=== PATIENT | female | born 1985 | race African-American/Black ===

== ENCOUNTER 2016-10-28 18:08 | Emergency (ER) | payer MEDICAID ==
--- NOTE | 2016-10-28 18:41 | ER Document Report ---
ED Medical Screen (RME) - General Stated Complaint: STOMACH CRAMPING Time seen by provider: 18:41 Mode of Arrival: Wheelchair Information source: Patient TRAVEL OUTSIDE OF THE [place] IN LAST 30 DAYS: No - HPI Patient complains to provider of: ABD PAIN Onset: This morning Onset/Duration: Sudden, Intermittent Quality of pain: Cramping, Sharp Severity: Severe Pain Level: 5 Associated Symptoms: Abdominal pain - UPPER ABD, Nausea, Vomiting. denies: Fever, Vaginal bleeding Exacerbated by: Denies Relieved by: Denies Similar symptoms previously: No Recently seen / treated by doctor: No - Related Data Smoking: Non-smoker Frequency of alcohol use: None Drug Abuse: None Allergies/Adverse Reactions: naproxen [Naproxen] Allergy (Intermediate, Verified 10/28/16 18:42) itching, hives Past Medical History Pulmonary Medical History: Reports: Hx Bronchitis Endocrine Medical History: Denies: Hx Diabetes Mellitus Type 1, Hx Diabetes Mellitus Type 2 Skin Medical History: Denies Hx Cellulitis, Denies Hx MRSA Traumatic Medical History: Denies: Hx Fractures Past Surgical History: Reports: Hx Cholecystectomy - Immunizations Hx Diphtheria, Pertussis, Tetanus Vaccination: No - unknown Physical Exam - Vital signs Vitals: Temp Pulse Resp BP Pulse Ox 98.3 F 86 18 133/87 H 100 10/28/16 18:20 10/28/16 18:20 10/28/16 18:20 10/28/16 18:20 10/28/16 18:20 Course - Vital Signs Vital signs: Temp Pulse Resp BP Pulse Ox 98.3 F 86 18 133/87 H 100 10/28/16 18:20 10/28/16 18:20 10/28/16 18:20 10/28/16 18:20 10/28/16 18:20
[2016-10-28] MEDS ORDERED: PROMETHAZINE HCL 25 MG TABLET PO ONE (18:47)
[2016-10-28 19:10] LABS: ABSOLUTE LYMPHOCYTES (AUTO) 2.4 10^3/uL (0.5-4.7); ABSOLUTE MONOCYTES (AUTO) 0.9 10^3/uL (0.1-1.4); ABSOLUTE NEUT (AUTO) 10.6 10^3/uL (1.7-8.2); BASOPHILS % (AUTO) 0.2 % (0-2); EOSINOPHILS % (AUTO) 0.2 % (0-6); HEMATOCRIT 41.1 % (36.0-47.0); HEMOGLOBIN 13.7 g/dL (12.0-15.5); LYMPHOCYTES % (AUTO) 17.3 % (13-45); MEAN CORPUSCULAR HEMOGLOBIN 29.4 pg (27.0-33.4); MEAN CORPUSCULAR HGB CONC 33.2 g/dL (32.0-36.0); MEAN CORPUSCULAR VOLUME 88 fl (80-97); MONOCYTES % (AUTO) 6.3 % (3-13); RED BLOOD COUNT 4.65 10^6/uL (3.72-5.28); RED CELL DISTRIBUTION WIDTH 14.2 % (11.5-14.0)
[2016-10-28 19:13] LABS: APPEARANCE,URINE CLOUDY; BILIRUBIN,URINE NEGATIVE (NEGATIVE); GLUCOSE, URINE NEGATIVE (NEGATIVE); KETONES,URINE NEGATIVE (NEGATIVE); LEUKOCYTE ESTERASE,URINE LARGE (NEGATIVE); NITRITE,URINE NEGATIVE (NEGATIVE); PROTEIN,URINE NEGATIVE (NEGATIVE); URINE SPECIFIC GRAVITY 1.011
[2016-10-28 19:22] LABS: ALANINE AMINOTRANSFERASE 19 U/L (9-52); ALBUMIN 4.8 g/dL (3.5-5.0); ALKALINE PHOSPHATASE 65 U/L (38-126); ANION GAP 14 (5-19); ASPARTATE AMINO TRANSFERASE 18 U/L (14-36); BILIRUBIN,TOTAL 0.8 mg/dL (0.2-1.3); BLOOD UREA NITROGEN 7 mg/dL (7-20); CALCIUM 9.8 mg/dL (8.4-10.2); CARBON DIOXIDE 25 mmol/L (22-30); CHLORIDE 101 mmol/L (98-107); CREATININE RESULT 0.63 mg/dL (0.52-1.25); GLUCOSE 94 mg/dL (75-110); SODIUM 139.6 mmol/L (137-145); TOTAL PROTEIN 7.9 g/dL (6.3-8.2)
[2016-10-28] MEDS ORDERED: CEFTRIAXONE INJ 1000 MG VIAL IM ONE (20:38)
--- NOTE | 2016-10-28 21:32 | ER Document Report ---
ED General - General Chief Complaint: Abdominal Pain Stated Complaint: STOMACH CRAMPING Mode of Arrival: Wheelchair Information source: Patient Notes: This 30-year-old female who had a confirmed with the health department about 5 weeks ago has not followed up with an HELMINTHOLOGIST yet however she did have a blood test it was a confirmed with them she presents to the ER today stating she's got upper abdominal discomfort she does not have any bleeding spotting or cramping states that the pain is more like acidic burning type discomfort TRAVEL OUTSIDE OF THE [place] IN LAST 30 DAYS: No - Related Data Allergies/Adverse Reactions: naproxen [Naproxen] Allergy (Intermediate, Verified 10/28/16 18:42) itching, hives Past Medical History - General Information source: Patient - Social History Smoking Status: Never Smoker Chew tobacco use (# tins/day): No Frequency of alcohol use: None Drug Abuse: None Family History: CVA Patient has suicidal ideation: No Patient has homicidal ideation: No Pulmonary Medical History: Reports: Hx Bronchitis Endocrine Medical History: Denies: Hx Diabetes Mellitus Type 1, Hx Diabetes Mellitus Type 2 Renal/ Medical History: Denies: Hx Peritoneal Dialysis Skin Medical History: Denies Hx Cellulitis, Denies Hx MRSA Traumatic Medical History: Denies: Hx Fractures Past Surgical History: Reports: Hx Cholecystectomy - Immunizations Hx Diphtheria, Pertussis, Tetanus Vaccination: No - unknown Review of Systems - Review of Systems Constitutional: No symptoms reported EENT: No symptoms reported Cardiovascular: No symptoms reported Respiratory: No symptoms reported Gastrointestinal: No symptoms reported Genitourinary: No symptoms reported Female Genitourinary: No symptoms reported Musculoskeletal: No symptoms reported Skin: No symptoms reported Hematologic/Lymphatic: No symptoms reported Neurological/Psychological: No symptoms reported Physical Exam - Vital signs Vitals: Temp Pulse Resp BP Pulse Ox 98.3 F 86 18 133/87 H 100 10/28/16 18:20 10/28/16 18:20 10/28/16 18:20 10/28/16 18:20 10/28/16 18:20 Interpretation: Normal - General General appearance: Appears well, Alert - HEENT Head: Normocephalic, Atraumatic Eyes: Normal Pupils: PERRL - Respiratory Respiratory status: No respiratory distress Chest status: Nontender Breath sounds: Normal Chest palpation: Normal - Cardiovascular Rhythm: Regular Heart sounds: Normal auscultation Murmur: No - Abdominal Inspection: Normal Distension: No distension Bowel sounds: Normal Tenderness: Nontender Organomegaly: No organomegaly - Back Back: Normal, Nontender - Extremities General upper extremity: Normal inspection, Nontender, Normal color, Normal ROM , Normal temperature General lower extremity: Normal inspection, Nontender, Normal color, Normal ROM , Normal temperature, Normal weight bearing. No: Erin's sign - Neurological Neuro grossly intact: Yes Cognition: Normal Orientation: AAOx4 Sal Coma Scale Eye Opening: Spontaneous [place] Coma Scale Verbal: Oriented Sal Coma Scale Motor: Obeys Commands [place] Coma Scale Total: 15 Speech: Normal Motor strength normal: LUE, RUE, LLE, RLE Sensory: Normal - Psychological Associated symptoms: Normal affect, Normal mood - Skin Skin Temperature: Warm Skin Moisture: Dry Skin Color: Normal Course - Vital Signs Vital signs: Temp Pulse Resp BP Pulse Ox 98.3 F 86 18 133/87 H 100 10/28/16 18:20 10/28/16 18:20 10/28/16 18:20 10/28/16 18:20 10/28/16 18:20 - Laboratory Result Diagrams: 10/28/16 18:50 10/28/16 18:50 Laboratory results interpreted by me: 10/28/16 10/28/16 10/28/16 18:50 18:50 18:50 WBC 14.0 H RDW 14.2 H Absolute Neutrophils 10.6 H Beta HCG, Quant 901456.00 H Urine Urobilinogen 2.0 H Ur Leukocyte Esterase LARGE H - Diagnostic Test Radiology reviewed: Reports reviewed Discharge - Discharge Clinical Impression: UTI (urinary tract infection) Qualifiers: Urinary tract infection type: site unspecified Hematuria presence: without hematuria Qualified Code(s): N39.0 - Urinary tract infection, site not specified GERD (gastroesophageal reflux disease) Qualifiers: Esophagitis presence: without esophagitis Qualified Code(s): K21.9 - Gastro- esophageal reflux disease without esophagitis Disposition: HOME, SELF-CARE Instructions: Cephalexin ([facility]) Additional Instructions: Urinary Tract Infection Your evaluation indicates that you have a urinary tract infection. This is due to germs growing in the bladder. This is a common problem. This infection usually responds quickly to antibiotics. Your antibiotic should be taken exactly as prescribed. Drink plenty of fluids -- three to four quarts a day. Occasionally, a bladder anesthetic will be prescribed to help stop the feeling of urgency until the antibiotic has a chance to clear the infection. This may cause your urine to be dark orange. Certain urine infections require a culture. If the doctor obtained a culture, the results will be back in two days. You should call to see if a change in treatment is needed. A repeat urinalysis after you finish treatment is often recommended. The physician will let you know if further testing is required. Call the doctor if you develop fever, chills, flank pain, inability to urinate, or blood in the urine. Follow-up with private doctor in 1 to 2 days for final radiology readings please return to the emergency room for any change worsening condition. Follow up with private M.D. for all other routine health care needs. Follow-up with [facility] [facility] TECHNICIAN as appointed on Thursday
[2016-10-28] MEDS ORDERED: LIDOCAINE 1% INJ-PF (10 MG/ML) 30 ML SDV ONE (21:48)
[2016-10-28 22:06] VITALS: BP 117/75
== END 2016-10-28 22:04 | disposition home or self-care (01) ==
LOC: ER 18:08
DX: O23.40 Unspecified infection of urinary tract in pregnancy, unspecified trimester (principal); O99.619 Diseases of the digestive system complicating pregnancy, unspecified trimester; K21.9 Gastro-esophageal reflux disease without esophagitis; O26.899 Other specified pregnancy related conditions, unspecified trimester; R10.10 Upper abdominal pain, unspecified; Z3A.00 Weeks of gestation of pregnancy not specified
CPT/HCPCS: 99283; 96372; 86900; 86901; 36415; 84702; 85025; 80053; 81001; 76801; 93976; J3490; J0696

== ENCOUNTER 2016-11-20 18:15 | Emergency (ER) | payer MEDICAID ==
--- NOTE | 2016-11-20 19:15 | ER Document Report ---
ED Medical Screen (RME) - General Stated Complaint: ABDOMINAL PAIN, VAGINAL BLEEDING Mode of Arrival: Ambulatory Information source: Patient Notes: 31-year-old female who reports is approximately 12 weeks , , presents to the emergency department complaining of mild upper abdominal cramping and vaginal bleeding that began this afternoon. Reports noted blood when wiping after urinating. I have greeted and performed a rapid initial assessment of this patient. A comprehensive ED assessment and evaluation of the patient, analysis of test results and completion of the medical decision making process will be conducted by additional ED providers. TRAVEL OUTSIDE OF THE [place] IN LAST 30 DAYS: No - Related Data Allergies/Adverse Reactions: naproxen [Naproxen] Allergy (Intermediate, Verified 11/20/16 19:08) itching, hives Past Medical History Pulmonary Medical History: Reports: Hx Bronchitis Endocrine Medical History: Denies: Hx Diabetes Mellitus Type 1, Hx Diabetes Mellitus Type 2 Renal/ Medical History: Denies: Hx Peritoneal Dialysis Skin Medical History: Denies Hx Cellulitis, Denies Hx MRSA Traumatic Medical History: Denies: Hx Fractures Past Surgical History: Reports: Hx Cholecystectomy - Immunizations Hx Diphtheria, Pertussis, Tetanus Vaccination: No - unknown Physical Exam - General General appearance: Appears well, Alert In distress: None - Respiratory Respiratory status: No respiratory distress - Cardiovascular Rhythm: Regular Pulses: Normal: Radial Normal capillary refill: Yes
[2016-11-20 19:38] LABS: ABSOLUTE EOSINOPHILS # (AUTO) 0.1 10^3/uL (0.0-0.6); ABSOLUTE LYMPHOCYTES (AUTO) 3.1 10^3/uL (0.5-4.7); ABSOLUTE NEUT (AUTO) 10.3 10^3/uL (1.7-8.2); BASOPHILS % (AUTO) 0.3 % (0-2); EOSINOPHILS % (AUTO) 0.6 % (0-6); HEMATOCRIT 39.8 % (36.0-47.0); HEMOGLOBIN 13.4 g/dL (12.0-15.5); HGB HCT DIFFERENCE 0.4; LYMPHOCYTES % (AUTO) 21.2 % (13-45); MEAN CORPUSCULAR HEMOGLOBIN 29.8 pg (27.0-33.4); MEAN CORPUSCULAR HGB CONC 33.6 g/dL (32.0-36.0); MEAN CORPUSCULAR VOLUME 89 fl (80-97); MONOCYTES % (AUTO) 6.9 % (3-13); RED BLOOD COUNT 4.49 10^6/uL (3.72-5.28); RED CELL DISTRIBUTION WIDTH 14.1 % (11.5-14.0); WHITE BLOOD COUNT 14.5 10^3/uL (4.0-10.5)
[2016-11-20 19:52] LABS: APPEARANCE,URINE CLEAR; BILIRUBIN,URINE NEGATIVE (NEGATIVE); GLUCOSE, URINE NEGATIVE (NEGATIVE); KETONES,URINE 20 mg/dL (NEGATIVE); LEUKOCYTE ESTERASE,URINE NEGATIVE (NEGATIVE); NITRITE,URINE NEGATIVE (NEGATIVE); PROTEIN,URINE 30 mg/dL (NEGATIVE); URINE SPECIFIC GRAVITY 1.018
[2016-11-20 19:55] LABS: ALANINE AMINOTRANSFERASE 29 U/L (9-52); ALBUMIN 4.1 g/dL (3.5-5.0); ALKALINE PHOSPHATASE 66 U/L (38-126); ANION GAP 13 (5-19); ASPARTATE AMINO TRANSFERASE 20 U/L (14-36); BILIRUBIN,TOTAL 0.5 mg/dL (0.2-1.3); BLOOD UREA NITROGEN 6 mg/dL (7-20); CARBON DIOXIDE 23 mmol/L (22-30); CHLORIDE 101 mmol/L (98-107); CREATININE RESULT 0.63 mg/dL (0.52-1.25); GLUCOSE 78 mg/dL (75-110); SODIUM 136.5 mmol/L (137-145); TOTAL PROTEIN 7.6 g/dL (6.3-8.2)
--- NOTE | 2016-11-20 22:02 | ER Document Report ---
ED General - General Chief Complaint: Vaginal Bleeding Stated Complaint: ABDOMINAL PAIN, VAGINAL BLEEDING Time seen by provider: 21:50 Mode of Arrival: Ambulatory Information source: Patient Notes: 31-year-old female with abrupt onset of vaginal bleeding with passage of clots and lower abdominal cramping meeting about 3:30 this afternoon. Patient thinks she is about 12 weeks . She denies fever, chills, nausea, vomiting, cough, shortness of breath, chest pain, or back pain. She reports recent UTI but says those symptoms resolved. She denies hematemesis, mattress, melena Physical Exam: General: Alert, appears well. HEENT: Normocephalic. Atraumatic. PERRLA. Extraocular movements intact. Oropharynx clear. Neck: Supple. Non-tender. Respiratory: No respiratory distress. Clear and equal breath sounds bilaterally. Cardiovascular: Regular rate and rhythm. Abdominal: Normal Inspection. Soft, non-tender. No distension. Normal Bowel Sounds. normal female external genitalia. No blood in vaginal vault. No discharge present. No cervical motion tenderness. Os closed. No adnexal masses or tenderness. Uterus barely palpable at the pelvic brim Back: Non-tender. No deformity or step off. Extremities without gross deformity all with 2+ pulses Homans sign bilaterally Neurological: Speech clear mentation normal Psychological: Normal affect. Normal Mood. Skin: Warm. Dry. Normal color. TRAVEL OUTSIDE OF THE [place] IN LAST 30 DAYS: No - Related Data Allergies/Adverse Reactions: naproxen [Naproxen] Allergy (Intermediate, Verified 11/20/16 19:08) itching, hives Past Medical History - General Information source: Patient - Social History Smoking Status: Former Smoker Chew tobacco use (# tins/day): No Frequency of alcohol use: None Drug Abuse: None Family History: CVA, DM Patient has suicidal ideation: No Patient has homicidal ideation: No Pulmonary Medical History: Reports: Hx Bronchitis Endocrine Medical History: Denies: Hx Diabetes Mellitus Type 1, Hx Diabetes Mellitus Type 2 Renal/ Medical History: Reports: Other - . Denies: Hx Peritoneal Dialysis Skin Medical History: Denies Hx Cellulitis, Denies Hx MRSA Traumatic Medical History: Denies: Hx Fractures Past Surgical History: Reports: Hx Cholecystectomy - Immunizations Hx Diphtheria, Pertussis, Tetanus Vaccination: No - unknown Review of Systems - Review of Systems Constitutional: denies: Chills, Fever EENT: denies: Ear pain, Throat pain Cardiovascular: denies: Chest pain, Dyspnea Respiratory: denies: Cough, Short of breath Gastrointestinal: See HPI Genitourinary: See HPI Female Genitourinary: Musculoskeletal: denies: Back pain Hematologic/Lymphatic: denies: Swollen glands Neurological/Psychological: denies: Weakness, Numbness Course - Re-evaluation Re-evalutation: 11/20/16 22:46 Patient is asymptomatic now. I discussed with her possibility that this may represent reddened a be but at the moment things look healthy she will follow with her SANFOR[facility]ER for recheck - Laboratory Result Diagrams: 11/20/16 19:15 11/20/16 19:15 Laboratory results interpreted by me: 11/20/16 11/20/16 11/20/16 19:15 19:15 19:15 WBC 14.5 H RDW 14.1 H Absolute Neutrophils 10.3 H Sodium 136.5 L BUN 6 L Beta HCG, Quant 180301.00 H Urine Protein 30 H Urine Ketones 20 H Urine Urobilinogen 2.0 H Urine Ascorbic Acid 40 H - Diagnostic Test Radiology reviewed: Reports reviewed Discharge - Discharge Clinical Impression: First-trimester bleeding Condition: Stable Disposition: HOME, SELF-CARE Additional Instructions: Threatened Miscarriage You have been evaluated for a possible miscarriage. At this time, there is no indication that a miscarriage will occur. Most women with your symptoms will go on to have a perfectly normal baby. However, careful observation will be necessary. A miscarriage occurs when the fetus is abnormal. There is no medicine or treatment for it. You should rest in bed until the symptoms have resolved. Do not douche or have sex for at least a week, or until OK'd by the doctor. Call the doctor or return for re-examination if there is an increase in bleeding or cramping, or passage of tissue. Referrals: KIERSTEN MONROY MD [Primary Care Provider] - Follow up in 1 week
[2016-11-20 23:16] VITALS: BP 127/74
== END 2016-11-20 23:00 | disposition home or self-care (01) ==
LOC: ER 18:15
DX: O20.9 Hemorrhage in early pregnancy, unspecified (principal); O26.891 Other specified pregnancy related conditions, first trimester; R10.30 Lower abdominal pain, unspecified; Z3A.00 Weeks of gestation of pregnancy not specified; Z87.891 Personal history of nicotine dependence; Z88.8 Allergy status to other drugs, medicaments and biological substances; Z90.49 Acquired absence of other specified parts of digestive tract
CPT/HCPCS: 36415; 76801; 80053; 81001; 83690; 84702; 85025; 86900; 86901; 93976; 99284

== ENCOUNTER → 2017-02-24 | Outpatient (CLI) | payer MEDICAID ==
[2017-02-24 13:04] LABS: ABSOLUTE MONOCYTES (AUTO) 0.9 10^3/uL (0.1-1.4); ABSOLUTE NEUT (AUTO) 9.8 10^3/uL (1.7-8.2); BASOPHILS % (AUTO) 0.2 % (0-2); EOSINOPHILS % (AUTO) 0.4 % (0-6); HEMATOCRIT 36.2 % (36.0-47.0); HEMOGLOBIN 11.8 g/dL (12.0-15.5); HGB HCT DIFFERENCE -0.8; LYMPHOCYTES % (AUTO) 15.9 % (13-45); MEAN CORPUSCULAR HGB CONC 32.7 g/dL (32.0-36.0); MEAN CORPUSCULAR VOLUME 89 fl (80-97); MONOCYTES % (AUTO) 7.2 % (3-13); RED BLOOD COUNT 4.09 10^6/uL (3.72-5.28); RED CELL DISTRIBUTION WIDTH 14.2 % (11.5-14.0); SEGMENTED NEUTROPHILS % (AUTO) 76.3 % (42-78); WHITE BLOOD COUNT 12.8 10^3/uL (4.0-10.5)
[2017-02-24 13:49] LABS: APPEARANCE,URINE SLIGHTLY-CLOUDY; BILIRUBIN,URINE NEGATIVE (NEGATIVE); GLUCOSE, URINE 50 mg/dL (NEGATIVE); KETONES,URINE NEGATIVE (NEGATIVE); LEUKOCYTE ESTERASE,URINE TRACE (NEGATIVE); NITRITE,URINE NEGATIVE (NEGATIVE); PROTEIN,URINE NEGATIVE (NEGATIVE); URINE SPECIFIC GRAVITY 1.014; UROBILINOGEN,URINE NEGATIVE mg/dL (<2.0)
[2017-02-24 14:09] LABS: URINE BARBITURATES SCREEN NEGATIVE; URINE METHADONE SCREEN NEGATIVE; URINE OPIATES LOW NEGATIVE; URINE PHENCYCLIDINE SCREEN NEGATIVE
== END ==
LOC: LC 11:49
PROVIDERS: ATTEND Obstetrics & Gynecology
PROC: 4A1HXCZ Monitoring of Products of Conception, Cardiac Rate, External Approach (ICD-10-PCS; principal; 2017-02-24)
DX: O26.892 Other specified pregnancy related conditions, second trimester (principal); R10.2 Pelvic and perineal pain; Z3A.25 25 weeks gestation of pregnancy
CPT/HCPCS: 36415; 80307; 81001; 85025

== ENCOUNTER 2017-03-05 16:35 | Outpatient (CLI) | payer MEDICAID ==
[~2017-03-05 16:35] MED LIST: RINGERS SOLUTION,LACTATED 1,000 ML IV PRN
[2017-03-05 17:18] LABS: APPEARANCE,URINE CLEAR; BILIRUBIN,URINE NEGATIVE (NEGATIVE); GLUCOSE, URINE NEGATIVE (NEGATIVE); KETONES,URINE NEGATIVE (NEGATIVE); LEUKOCYTE ESTERASE,URINE TRACE (NEGATIVE); NITRITE,URINE NEGATIVE (NEGATIVE); PROTEIN,URINE 30 mg/dL (NEGATIVE); URINE SPECIFIC GRAVITY 1.021; UROBILINOGEN,URINE NEGATIVE mg/dL (<2.0)
[2017-03-05 17:19] LABS: BACTERIA,URINE TRACE /HPF; RBC,URINE 0-1 /HPF; WBC,URINE 0-1 /HPF
[2017-03-05 17:38] LABS: URINE BARBITURATES SCREEN NEGATIVE; URINE METHADONE SCREEN NEGATIVE; URINE OPIATES LOW NEGATIVE; URINE PHENCYCLIDINE SCREEN NEGATIVE
== END 2017-03-05 17:52 | disposition home or self-care (01) ==
LOC: LC 16:35
PROVIDERS: ATTEND Obstetrics & Gynecology
PROC: 4A1HXCZ Monitoring of Products of Conception, Cardiac Rate, External Approach (ICD-10-PCS; principal; 2017-03-05)
DX: O99.282 Endocrine, nutritional and metabolic diseases complicating pregnancy, second trimester (principal); E86.0 Dehydration; R11.2 Nausea with vomiting, unspecified; Z3A.27 27 weeks gestation of pregnancy
CPT/HCPCS: 80307; 81001

== ENCOUNTER 2017-04-14 11:44 | Outpatient (CLI) | payer MEDICAID ==
[2017-04-14 12:38] LABS: APPEARANCE,URINE CLOUDY; BILIRUBIN,URINE NEGATIVE (NEGATIVE); GLUCOSE, URINE NEGATIVE (NEGATIVE); KETONES,URINE NEGATIVE (NEGATIVE); LEUKOCYTE ESTERASE,URINE SMALL (NEGATIVE); NITRITE,URINE NEGATIVE (NEGATIVE); PROTEIN,URINE NEGATIVE (NEGATIVE); URINE SPECIFIC GRAVITY 1.005; UROBILINOGEN,URINE NEGATIVE mg/dL (<2.0)
[2017-04-14 12:52] LABS: URINE BARBITURATES SCREEN NEGATIVE; URINE METHADONE SCREEN NEGATIVE; URINE OPIATES LOW NEGATIVE; URINE PHENCYCLIDINE SCREEN NEGATIVE
--- NOTE | 2017-04-14 13:55 | RADIOLOGY REPORT (SQ) ---
EXAM DESCRIPTION: U/S OB LIMITED COMPLETED DATE/TIME: 04/14/2017 1:38 pm REASON FOR STUDY: cervical length- eval for PTL COMPARISON: No previous this TECHNIQUE: Limited transabdominal and endovaginal grayscale ultrasound for evaluation of specific re quested obstetrical parameters. LIMITATIONS: None. FINDINGS: CERVICAL LENGTH: 4.3 cm Closed. ROSY: Largest pocket 4 cm. FHR: 139 beats per minute. PRESENTATION: Cephalic. OTHER: No other significant findings. IMPRESSION: LIMITED OBSTETRICAL ULTRASOUND WITH MEASURED PARAMETERS DELINEATED ABOVE. Trimester of : Third trimester - 28 weeks to delivery. TECHNICAL DOCUMENTATION: JOB ID: [id number] [email or web address]- All Rights Reserved
--- NOTE | 2017-04-14 15:47 | Non Stress Test Report ---
Non Stress Test Datetime Report Generated by CPN: 04/14/2017 15:47 DEMOGRAPHIC EGA NST: 32.0 INDICATION Indication for Study: Ordered by Provider Indication for Study (NST) Other: Labor check, NST labor. VITAL SIGNS Temperature - NST: 98.3 Pulse - NST: 89 RESP - NST: 16 NBPSYS NST: 111 NBPDIA NST: 58 URINE RESULTS Urine Protein, NST: Negative Urine Ketones - NST: Negative Urine Glucose - NST: Negative Urine Blood - NST: Negative MONITORING Monitor Explained: Monitor Explained; Test Explained; Patient Verbalized Understanding Time on Monitor: 04/14/2017 12:07 Time off Monitor: 04/14/2017 14:26 NST Duration: 139 NST INTERVENTIONS NST Interventions: PO Hydration; Reposition Patient Physician Notified NST: A. Emmel, CNM BABY A: [id number] BABY A Movement : Present Contraction Frequency : None FHR Baseline : 130 Accelerations : 10X10 Decelerations : None Variability : Moderate 6-25bpm NST Review: Meets Criteria for Reactive NST NST Review and Verified By : JASON EASLEY, RN NST Results: Reactive NST COMMENTS NST Comments: Appropriate for gestational age, kickcounts carenotes given, questions answered. NST REPORT Report Trigger: Send Report
== END 2017-04-14 14:35 | disposition home or self-care (01) ==
LOC: LC 11:44
PROVIDERS: ATTEND Obstetrics & Gynecology
PROC: 4A1HXCZ Monitoring of Products of Conception, Cardiac Rate, External Approach (ICD-10-PCS; principal; 2017-04-14)
DX: O47.03 False labor before 37 completed weeks of gestation, third trimester (principal); Z3A.32 32 weeks gestation of pregnancy
CPT/HCPCS: 59025; 76815; 80307; 81001

== ENCOUNTER 2017-06-06 02:16 | Inpatient (IN) | payer MEDICAID ==
[2017-06-06] MEDS ORDERED: LIDOCAINE 1% INJ-PF (10 MG/ML) 30 ML SDV ONE (02:21)
[2017-06-06] MEDS ORDERED: MISOPROSTOL 0.2 MG TABLET ONE (02:21)
[2017-06-06] MEDS ORDERED: OXYTOCIN/NORMAL SALINE 20 UNIT/1,000 ML RTUINJ ONE (02:22)
[2017-06-06] MEDS ORDERED: RINGERS SOLUTION,LACTATED 1,000 ML IV PRN (02:27)
[2017-06-06] MEDS ORDERED: PENICILLIN G POTASSIUM 5,000,000 UNIT in DEXTROSE 5%-WATER 100 ML IV ONE (02:35)
[2017-06-06] MEDS ORDERED: PENICILLIN G-K 5 MILLION UNIT VIAL ONE (02:35)
[2017-06-06 02:39] LABS: ABSOLUTE BASOPHILS # (AUTO) 0.1 10^3/uL (0.0-0.2); ABSOLUTE LYMPHOCYTES (AUTO) 2.6 10^3/uL (0.5-4.7); ABSOLUTE MONOCYTES (AUTO) 0.9 10^3/uL (0.1-1.4); ABSOLUTE NEUT (AUTO) 8.5 10^3/uL (1.7-8.2); BASOPHILS % (AUTO) 0.5 % (0-2); EOSINOPHILS % (AUTO) 0.3 % (0-6); HEMATOCRIT 34.9 % (36.0-47.0); HEMOGLOBIN 11.1 g/dL (12.0-15.5); HGB HCT DIFFERENCE -1.6; LYMPHOCYTES % (AUTO) 21.2 % (13-45); MEAN CORPUSCULAR HEMOGLOBIN 26.3 pg (27.0-33.4); MEAN CORPUSCULAR HGB CONC 31.9 g/dL (32.0-36.0); MEAN CORPUSCULAR VOLUME 83 fl (80-97); MONOCYTES % (AUTO) 7.8 % (3-13); RED BLOOD COUNT 4.22 10^6/uL (3.72-5.28); RED CELL DISTRIBUTION WIDTH 15.7 % (11.5-14.0); SEGMENTED NEUTROPHILS % (AUTO) 70.2 % (42-78); WHITE BLOOD COUNT 12.1 10^3/uL (4.0-10.5)
[2017-06-06 02:46] LABS: APPEARANCE,URINE SLIGHTLY-CLOUDY; BILIRUBIN,URINE NEGATIVE (NEGATIVE); GLUCOSE, URINE NEGATIVE (NEGATIVE); KETONES,URINE NEGATIVE (NEGATIVE); LEUKOCYTE ESTERASE,URINE SMALL (NEGATIVE); NITRITE,URINE NEGATIVE (NEGATIVE); PROTEIN,URINE NEGATIVE (NEGATIVE); URINE SPECIFIC GRAVITY 1.005; UROBILINOGEN,URINE NEGATIVE mg/dL (<2.0)
[2017-06-06 03:05] LABS: URINE BARBITURATES SCREEN NEGATIVE; URINE METHADONE SCREEN NEGATIVE; URINE OPIATES LOW NEGATIVE; URINE PHENCYCLIDINE SCREEN NEGATIVE
[2017-06-06] MEDS ORDERED: PSEUDOEPHEDRINE HCL 30 MG TABLET PO PRN (03:38)
[2017-06-06] MEDS ORDERED: MEASLES,MUMPS&RUBELLA VACC/PF 0.5 ML VIAL SUBCUT PRN (03:38)
[2017-06-06] MEDS ORDERED: PROMETHAZINE HCL 25 MG SUPP.RECT PR PRN (03:38)
[2017-06-06] MEDS ORDERED: ZOLPIDEM TARTRATE 5 MG TABLET PO PRN (03:38)
[2017-06-06] MEDS ORDERED: BENZOCAINE/MENTHOL AEROSOL SPRAY 56 ML TOP PRN (03:38)
[2017-06-06] MEDS ORDERED: ACETAMINOPHEN 650 MG SUPP.RECT PR PRN (03:38)
[2017-06-06] MEDS ORDERED: DIPH/PERTUSS(ACELL)/TETANUS VAC/PF 0.5 ML SYR (>=10YO) IM PRN (03:38)
[2017-06-06] MEDS ORDERED: ACETAMINOPHEN WITH CODEINE #3 TABLET PO PRN (03:38)
[2017-06-06] MEDS ORDERED: MAGNESIUM HYDROXIDE SUSP 30 ML UDCUP PO PRN (03:38)
[2017-06-06] MEDS ORDERED: NA PHOS,M-B/NA PHOS,DI-BA (ADULT) 133 ML ENEMA PR PRN (03:38)
[2017-06-06] MEDS ORDERED: OXYTOCIN/NORMAL SALINE 20 UNIT/1,000 ML RTUINJ IV PRN (03:38)
[2017-06-06] MEDS ORDERED: GLYCERIN/WITCH HAZEL LEAF 1 EACH MED..PAD TP PRN (03:38)
[2017-06-06] MEDS ORDERED: DIPHENHYDRAMINE HCL 25 MG CAPSULE PO PRN (03:38)
[2017-06-06] MEDS ORDERED: PROMETHAZINE HCL 25 MG TABLET PO PRN (03:38)
[2017-06-06] MEDS ORDERED: PROMETHAZINE HCL INJ 25 MG/1 ML VIAL IV PRN (03:38)
[2017-06-06] MEDS ORDERED: DIBUCAINE 1% OINTMENT 28 GM TP PRN (03:38)
[2017-06-06] MEDS ORDERED: ACETAMINOPHEN WITH CODEINE #3 TABLET ONE (04:10)
[2017-06-06] MEDS: ACETAMINOPHEN WITH CODEINE #3 TABLET PO PRN ×4 (04:23→23:59)
--- NOTE | 2017-06-06 05:43 | Admission Physical ---
Datetime Report Generated by CPN: 06/06/2017 05:43 CURRENT ADMISSION Chief Complaint: Uterine Contractions Indication for Induction: Not Applicable Admit Plan: Admit to Unit ALLERGIES Medication Allergies: Yes Medication Allergies: naproxen/MO/itching, hives (06/06/2017) Medication Allergies: naproxen/MO/itching, hives (04/14/2017) Medication Allergies: naproxen/MO/itching, hives (02/24/2017) Medication Allergies: naproxen/MO/itching, hives (11/20/2016) Latex: No Latex Allergies OBSTETRICAL HISTORY EDC: 06/09/2017 00:00 : 4 Para: 3 Term: 3 : 0 SAB: 0 IAB: 0 Ectopic: 0 Livin Cesareans: 0 VBACs: 0 Multiple Births: 0 Gestational Diabetes: Yes Rh Sensitization: No Incompetent Cervix: No ZOHRA: No Infertility: No ART Treatment: No Uterine Anomaly: No IUGR: No Hx Previous C/S: No Macrosomia: No Hx Loss/Stillborn: No PIH: No Hx : No Placenta Previa/Abruption: No Depression/PP Depression: Yes PTL/PROM: No Post Hemorrhage: Unknown Current Procedures: Ultrasound; NST Obstetrical History Comments: GDM G1 only PP Depression with G2 and G3 G4: current SEE RECORDS Alcohol: No Marijuana : No Cocaine: No Other Illicit Drugs: No Cigarettes: Former Smoker. [id number] MEDICAL HISTORY Diabetes: No Blood Transfusion: No Pulmonary Disease (Asthma, TB): No Breast Disease: No Hypertension: No Water Inspector Surgery: No Heart Disease: No Hosp/Surgery: Yes Autoimmune Disorder: No Anesthetic Complications: No Kidney Disease: No Abnormal Pap Smear: No Neuro/Epilepsy: No Psychiatric Disorders: No Other Medical Diseases: No Hepatitis/Liver Disease: No Significant Family History: No Varicosities/Phlebitis: No Trauma/Violence : No Thyroid Dysfunction: No Medical History Comments: childbirth, gallbladder INFECTIOUS HISTORY Gonorrhea: No Genital Herpes: No Chlamydia: No Tuberculosis: No Syphilis: No Hepatitis: No HIV/AIDS Exposure: No Rash or Viral Illness: No HPV: No PHYSICAL EXAM General: Normal HEENT: Normal Neurologic: Normal Thyroid: Normal Heart: Normal Lungs: Normal Breast: Normal Back: Normal Abdomen: Normal Genitourinary Exam: Normal Extremities: Normal DTRs: Normal Pelvic Type: Adequate Vital Signs: Reviewed VAGINAL EXAM Dilatation: 8 Effacement: 90 Station: -1 MEMBRANES Pooling: Positive Membranes: Ruptured FETUS A EGA: 39.4 Monitoring: External US FHR- Baseline: 140 Variability: Moderate 6-25bpm Accelerations: 15X15 Decelerations: None FHR Category: Category I Presentation: Vertex Admit Comment: anticpate delivery PLANS FOR LABOR AND DELIVERY Feeding Preference: Breast Benefit of Breast Feed Discussed: Yes Circumcision: N/A INFORMED CONSENT Signature: with User ID: [email or web address]
[2017-06-06] MEDS ORDERED: IBUPROFEN 800 MG TABLET PO SCH (06:00)
[2017-06-06] MEDS ORDERED: PENICILLIN G POTASSIUM 2,500,000 UNIT in DEXTROSE 5%-WATER 50 ML IV SCH (06:35)
[2017-06-06] MEDS: PRENATAL VITAMIN W-O CA NO5/FE FUMARATE/FA CAPSULE PO SCH (09:36)
[2017-06-06] MEDS: SENNOSIDES/DOCUSATE 8.6-50 MG 1 EACH TABLET PO SCH (09:36)
[2017-06-06] MEDS: FERROUS SULFATE 325 MG TABLET PO SCH ×2 (09:37→18:19)
[2017-06-06] MEDS: FAMOTIDINE 20 MG TABLET PO SCH ×2 (09:37→23:29)
[2017-06-06] MEDS: DOCUSATE SODIUM 100 MG CAPSULE PO SCH ×2 (09:37→18:19)
--- NOTE | 2017-06-06 11:57 | PDOC PROGRESS REPORT ---
Subjective-OB Subjective: Post Delivery Day: 31 year old. Denies any needs at this time. Some nausea sec Codeine medication. Has taken antinausea med. Physical Exam (OB) Vital Signs: Temp Pulse Resp BP Pulse Ox 98.6 F 73 16 140/83 H 100 06/06/17 07:35 06/06/17 07:35 06/06/17 07:35 06/06/17 07:35 06/06/17 07:35 Intake & Output 06/05/17 06/06/17 06/07/17 06:59 06:59 06:59 Weight 99 kg - Dressing Removed: No - Lochia Lochia Amount: Scant < 10 ml Lochia Color: Rubra/Red - Abdomen Description: Tender, Soft Hernia Present: No Bowel Sounds: Normoactive Flatus Presence: Absent Stool: No Fundal Description: Firm, Midline Fundal Height: u/u - u/2 Objective-Diagnostic Laboratory: 06/06/17 02:12 06/06/17 06/06/17 06/06/17 02:12 02:12 02:25 WBC 12.1 H RBC 4.22 Hgb 11.1 L Hct 34.9 L MCV 83 MCH 26.3 L MCHC 31.9 L RDW 15.7 H Plt Count 469 H Seg Neutrophils % 70.2 Lymphocytes % 21.2 Monocytes % 7.8 Eosinophils % 0.3 Basophils % 0.5 Absolute Neutrophils 8.5 H Absolute Lymphocytes 2.6 Absolute Monocytes 0.9 Absolute Eosinophils 0.0 Absolute Basophils 0.1 Urine Color YELLOW Urine Appearance SLIGHTLY-CLOUDY Urine pH 7.0 Ur Specific [place] 1.005 Urine Protein NEGATIVE Urine Glucose (UA) NEGATIVE Urine Ketones NEGATIVE Urine Blood NEGATIVE Urine Nitrite NEGATIVE Ur Leukocyte Esterase SMALL H Blood Type B POSITIVE Antibody Screen NEGATIVE
[2017-06-06] MEDS ORDERED: HYDROXYZINE PAMOATE 25 MG CAPSULE PO ONE (14:00)
[2017-06-06] MEDS ORDERED: HYDROXYZINE PAMOATE 25 MG CAPSULE PO PRN (22:00)
[2017-06-07 07:49] LABS: HEMATOCRIT 32.5 % (36.0-47.0); HEMOGLOBIN 10.7 g/dL (12.0-15.5); HGB HCT DIFFERENCE -0.4; MEAN CORPUSCULAR HEMOGLOBIN 27.4 pg (27.0-33.4); MEAN CORPUSCULAR HGB CONC 32.9 g/dL (32.0-36.0); MEAN CORPUSCULAR VOLUME 83 fl (80-97); RED BLOOD COUNT 3.91 10^6/uL (3.72-5.28); RED CELL DISTRIBUTION WIDTH 15.7 % (11.5-14.0); WHITE BLOOD COUNT 11.8 10^3/uL (4.0-10.5)
[2017-06-07] MEDS: FERROUS SULFATE 325 MG TABLET PO SCH ×2 (09:18→17:04)
[2017-06-07] MEDS: SENNOSIDES/DOCUSATE 8.6-50 MG 1 EACH TABLET PO SCH (09:18)
[2017-06-07] MEDS: DOCUSATE SODIUM 100 MG CAPSULE PO SCH ×2 (09:18→17:04)
[2017-06-07] MEDS: PRENATAL VITAMIN W-O CA NO5/FE FUMARATE/FA CAPSULE PO SCH (09:18)
--- NOTE | 2017-06-07 09:33 | PDOC PROGRESS REPORT ---
Subjective Progress Note for:: 06/07/17 Subjective:: s/p vaginal delivery yesterday. doing well. Physical Exam - Physical Exam Vital Signs: Temp Pulse Resp BP Pulse Ox 98.3 F 69 16 123/52 L 98 06/07/17 08:34 06/07/17 08:34 06/07/17 08:34 06/07/17 07:15 06/07/17 08:34 Intake & Output 06/06/17 06/07/17 06/08/17 06:59 06:59 06:59 Weight 99 kg General appearance: PRESENT: no acute distress - Obstetrical Exam Fundal Height: u/u - u/2 Tender: No Result Laboratory Results: 06/07/17 07:23 06/07/17 07:23 WBC 11.8 H RBC 3.91 Hgb 10.7 L Hct 32.5 L MCV 83 MCH 27.4 MCHC 32.9 RDW 15.7 H Plt Count 386 Assessment & Plan - Diagnosis (1) Delivery normal Is this a current diagnosis for this admission?: Yes (2) GBS (group B Streptococcus carrier), +RV culture, currently Is this a current diagnosis for this admission?: Yes (3) History of depression Is this a current diagnosis for this admission?: Yes (4) Obesity Qualifiers: Obesity type: due to excess calories Is this a current diagnosis for this admission?: Yes (5) Qualifiers: Weeks of gestation: 40 weeks Qualified Code(s): Z3A.40 - 40 weeks gestation of Is this a current diagnosis for this admission?: Yes - Plan Summary Plan Summary: plan for discharge in AM if remains stable.
[2017-06-07] MEDS: FAMOTIDINE 20 MG TABLET PO SCH ×2 (09:46→21:06)
[2017-06-07] MEDS: ACETAMINOPHEN WITH CODEINE #3 TABLET PO PRN (21:07)
[2017-06-08] MEDS: SENNOSIDES/DOCUSATE 8.6-50 MG 1 EACH TABLET PO SCH (09:20)
[2017-06-08] MEDS: DOCUSATE SODIUM 100 MG CAPSULE PO SCH (09:20)
[2017-06-08] MEDS: FAMOTIDINE 20 MG TABLET PO SCH (09:21)
[2017-06-08] MEDS: FERROUS SULFATE 325 MG TABLET PO SCH (09:21)
[2017-06-08] MEDS: PRENATAL VITAMIN W-O CA NO5/FE FUMARATE/FA CAPSULE PO SCH (09:21)
--- NOTE | 2017-06-08 10:47 | PDOC DISCHARGE SUMMARY ---
Final Diagnosis Discharge Date: 06/08/17 - Final Diagnosis (1) Blood loss anemia Is this a current diagnosis for this admission?: Yes (2) Obesity Is this a current diagnosis for this admission?: Yes (3) History of depression Is this a current diagnosis for this admission?: Yes (4) Is this a current diagnosis for this admission?: Yes (5) Delivery normal Is this a current diagnosis for this admission?: Yes (6) GBS (group B Streptococcus carrier), +RV culture, currently Is this a current diagnosis for this admission?: Yes Discharge Data - Discharge Medication Home Medications: Ranitidine HCl 150 mg PO BID 11/22/15 Doxylamine/Pyridoxine HCl [Diclegis Dr 10-10 mg Tablet] 1 each PO HSP PRN Vit/Iron Fumarate/FA [ Tablet] 1 each PO DAILY 04/14/17 Acetaminophen [Tylenol] 325 mg PO Q4HP PRN #90 tablet 06/08/17 Docusate Sodium [Colace 100 mg Capsule] 100 mg PO BID #60 capsule 06/08/17 Ferrous Sulfate [Feosol 325 mg Tablet] 325 mg PO BID #60 tablet 06/08/17 Reason(s) for Admission: Onset of Labor Procedures: NST, Ultrasound Intrapartum Procedure(s): Spontaneous Vaginal Delivery - Diagnosis Test Laboratory: Temp Pulse Resp BP Pulse Ox 98.5 F 85 16 122/55 L 100 06/08/17 07:51 06/08/17 07:51 06/08/17 07:51 06/08/17 07:51 06/08/17 07:51 06/06/17 06/06/17 06/07/17 02:12 02:25 07:23 RBC 4.22 3.91 Hgb 11.1 L 10.7 L Hct 34.9 L 32.5 L Urine Opiates Screen NEGATIVE - Discharge information/Instructions Discharge Activity: Activity As Tolerated, Balance Activity w/Rest, No Lifting Over 10 Pounds, No Lifting/Push/Pulling, Pelvic Rest, Slowly Increase Activity, No tub bath Discharge Diet: Regular Disposition: HOME, SELF-CARE Follow [facility]: [facility] in: 1, Weeks - blood pressure check
[2017-06-08 11:03] VITALS: BP 130/71
--- NOTE | 2017-06-11 11:47 | Delivery Summary ---
Del Sum A-C Datetime Report Generated by CPN: 06/11/2017 11:47 DELIVERY PERSONNEL DELIVERY PERSONNEL: [id number] Delivery Doctor:: Angel Banegas MD Labor and Delivery Nurse:: Kaylah Green, dough puncher Nurse:: Khushboo Zuñiga, RN [employer] Technician:: Tammy Reyes, RN MATERNAL INFORMATION Delivery Anesthesia: None Medications After Delivery: Pitocin Bolus-Please Comment Maternal Complications: Precipitous Labor (<3hrs) LABOR SUMMARY EDC: 06/09/2017 00:00 No. Babies in Womb: 1 Attempted: No Labor Anesthesia: None LABOR INFORMATION Reason for Induction: Not Applicable Onset of Labor: 06/06/2017 02:00 Complete Dilatation: 06/06/2017 03:17 Oxytocin: N/A Group B Beta Strep: positive Antibiotics # of Doses: 1 Steroids Given: None Reason Steroids Not Administered: Not Applicable MEMBRANES Membranes Rupture Method: Spontaneous Rupture of Membranes: 06/06/2017 02:00 Length of Rupture (hr): 1.52 Amniotic Fluid Color: Clear Amniotic Fluid Amount: Moderate STAGES OF LABOR Stage 1 hr: 1 Stage 1 min: 17 Stage 2 hr: 0 Stage 2 min: 14 Stage 3 hr: 0 Stage 3 min: 4 Total Time in Labor hr: 1 Total Time in Labor min: 35 VAGINAL DELIVERY Episiotomy: None Laceration Extension: N/A Laceration Type: None Laceration Repair: Not Applicable Sponge Count Correct: Vaginal Sweep Performed Sharps Count Correct: Yes CSECTION DELIVERY Primary Indication: N/A Secondary Indication: N/A CSection Incidence: N/A Labor: N/A Elective: N/A CSection Incision: N/A BABY A INFORMATION Delivery Date/Time: 06/06/2017 03:31 Method of Delivery: Vaginal Born in Route : No : N/A Forceps: N/A Vacuum Extraction: N/A Shoulder Dystocia : No PRESENTATION/POSITION BABY A Presentation: Cephalic Cephalic Presentation: Vertex Vertex Position: Direct Occiputal Posterior Breech Presentation: N/A PLACENTA INFORMATION BABY A Placenta Delivery Time : 06/06/2017 03:35 Placenta Method of Delivery: Spontaneous Placenta Status: Delivered SCORES BABY A Heart Rate 1 min: >100 bpm Resp Effort 1 min: Good Cry Reflex Irritability 1 min: Cough or Sneeze or Pulls Away Muscle Tone 1 min: Active Motion Color 1 min: Body [place] Line, Extremities Blue Resuscitation Effort 1 min: Tactile Stimulation SCORE 1 MIN: 9 Heart Rate 5 min: >100 bpm Resp Effort 5 min: Good Cry Reflex Irritability 5 min: Cough or Sneeze or Pulls Away Muscle Tone 5 min: Active Motion Color 5 min: Body [place] Line, Extremities Blue SCORE 5 MIN: 9 INFORMATION BABY A Gestational Age at Delivery: 39.4 Gestational Status: Full Term- 39- 40.6 Weeks Outcome : Liveborn Infant Condition : Stable Sex: Female IDENTIFICATION BABY A Verification Date/Time: 06/06/2017 03:38 ID Band Number: [id number] Mother's Name Verified: Yes Infant RN Verifying : Peewee Saunders RN/KChristopher Reyes RN WEIGHT/LENGTH BABY A Birthweight (gm): 3000 Infant Weight (lb): 6 Infant Weight (oz): 10 Infant Length (in): 21.00 Infant Length (cm): 53.34 CORD INFORMATION BABY A No. Cord Vessels: 3 Nuchal Cord : N/A Cord Blood Taken: Yes-For Storage (Mom's Blood type +) Suction: Mouth; Nose ASSESSMENT BABY A Infant Complications: None Physical Findings at Delivery: Within Normal Limits Physical Findings- Other: See full nursery assessment Infant Respirations: Appears Normal Skin to Skin: Yes Stem Sizer/ALS Called : No Care By: L Zuñiga RN Transferred To: Remains with Mother SIGNATURES Signature: with User ID: [email or web address]
== END 2017-06-08 14:26 | disposition home or self-care (01) | DRG 775 ==
LOC: LC 02:16 → LR 02:29 → 2S 05:38
PROVIDERS: ADMIT Obstetrics & Gynecology; ATTEND Obstetrics & Gynecology
PROC: 10E0XZZ Delivery of Products of Conception, External Approach (ICD-10-PCS; principal; 2017-06-06)
PROC: 4A1HXCZ Monitoring of Products of Conception, Cardiac Rate, External Approach (ICD-10-PCS; 2017-06-06)
DX: O62.3 Precipitate labor (principal); Z68.41 Body mass index [BMI] 40.0-44.9, adult; O99.214 Obesity complicating childbirth; E66.9 Obesity, unspecified; O99.02 Anemia complicating childbirth; D64.9 Anemia, unspecified; Z37.0 Single live birth; Z3A.39 39 weeks gestation of pregnancy; Z87.891 Personal history of nicotine dependence; Z90.49 Acquired absence of other specified parts of digestive tract
CPT/HCPCS: 36415; 80307; 81005; 85025; 85027; 86592; 86850; 86900; 86901; 94760; J2540; J2590; J3490

== ENCOUNTER 2017-07-27 13:39 | Emergency (ER) | payer MEDICAID ==
[2017-07-27] MEDS ORDERED: BUPIVACAINE HCL 0.5 % INJ/PF 30 ML SDV INJ ONE (14:09)
[2017-07-27] MEDS ORDERED: LIDOCAINE 1% INJ-PF (10 MG/ML) 30 ML SDV INJ ONE (14:09)
--- NOTE | 2017-07-27 14:12 | ER Document Report ---
HPI - HPI Patient complains to provider of: right hand pain Pain Level: 5 Context: Patient is a 31-year-old female comes emergency department for chief complaint of pain to her right middle finger, she reports swelling towards the end of her finger. She states that the area has become increasingly painful. Symptoms started about a week ago. She denies injury to the area. When asked she admits she picks at her nails and bites her nails frequently. She takes no daily medications except oral contraceptive. She denies any other symptoms. - REPRODUCTIVE LMP: post Reproductive: REPORTS: : - DERM Skin Color: Normal Past Medical History - General Information source: Patient - Social History Smoking Status: Never Smoker Frequency of alcohol use: None Drug Abuse: None Lives with: Family Family History: CVA, DM Patient has suicidal ideation: No Patient has homicidal ideation: No Pulmonary Medical History: Reports: Hx Bronchitis Endocrine Medical History: Denies: Hx Diabetes Mellitus Type 1, Hx Diabetes Mellitus Type 2 Renal/ Medical History: Denies: Hx Peritoneal Dialysis Skin Medical History: Denies Hx Cellulitis, Denies Hx MRSA Traumatic Medical History: Denies: Hx Fractures Past Surgical History: Reports: Hx Cholecystectomy - Immunizations Hx Diphtheria, Pertussis, Tetanus Vaccination: No - unknown Vertical Provider Document - CONSTITUTIONAL General Appearance: WD/WN, No Apparent Distress - INFECTION CONTROL TRAVEL OUTSIDE OF THE [place] IN LAST 30 DAYS: No - HEENT HEENT: Atraumatic, Normocephalic - NECK Neck: Normal Inspection - RESPIRATORY Respiratory: Breath Sounds Normal, No Respiratory Distress O2 Sat by Pulse Oximetry: 100 - CARDIOVASCULAR Cardiovascular: Regular Rate, Regular Rhythm - GI/ABDOMEN Gastrointestinal: Abdomen Soft, Abdomen Non-Tender - BACK Back: Normal Inspection - MUSCULOSKELETAL/EXTREMETIES Musculoskeletal/Extremeties: Tender - There is swelling over the cuticle area and along the medial aspect of the right middle finger nail, no significant erythema or heat noted, the area is tender, no drainage from the area, full range of motion of the finger, normal capillary refill and sensation, normal hand and upper extremity exam otherwise. Course - Re-evaluation Re-evalutation: Examination consistent with paronychia, this was opened, purulent drainage expressed, area cleaned and dressed, discussed treatment of paronychia, placing on antibiotic because of the amount of some soft tissue swelling and purulent drainage. Patient secondarily pointed out that she has a left great toenail which is yellow in color and healing/growing upwards instead of normally, recommended trimming this, she requests referral to podiatry, discussed topical antifungals as well. Discussed return precautions in regard to paronychia, patient states understanding and agreement. - Vital Signs Vital signs: Temp Pulse Resp BP Pulse Ox 98.9 F 61 16 140/79 H 100 07/27/17 13:42 07/27/17 13:42 07/27/17 13:42 07/27/17 13:42 07/27/17 13:42 Procedures - Incision and Drainage Right middle finger paronychia Type: Single Anesthetic type: Other - Digital block performed with 5 mL's total of 1% lidocaine and 0.5% bupivacaine I&D procedure: Shurclens applied - Surgical cleanser, Sterile dressing applied Incision Method: Incision made by scalpel Amount/type of drainage: Moderate amount of purulent drainage, minimal bleeding Discharge - Discharge Clinical Impression: Paronychia of finger of right hand Condition: Stable Disposition: HOME, SELF-CARE Additional Instructions: Keep current dressing on for the next 24 hours. Afterwards clean with soap and water, apply clean dressing, you can apply thin film of antibiotic. Take the oral antibiotic as directed as well. Take Tylenol for pain. I also recommend trimming your toenail and following up with podiatry for additional management because of ongoing issues with your toenail. See additional instructions below, return for any concerning symptoms. Paronychia You have an infection between the nail and the surrounding skin, called a paronychia. The germs infect the area after a minor skin injury, such as a hangnail. This infection is treated by releasing the pus. This is usually done by the skin from the nail. If the infection has spread underneath the nail, partial removal of the nail may be necessary. Hot-soak the area three or four times daily. Antibiotics are often given, but are not always necessary. Healing takes about a week. If pain or swelling becomes severe or if you develop fever or chills, call the doctor or return for re-examination. Prescriptions: Cephalexin Monohydrate [Keflex 500 mg Capsule] 500 mg PO QID #20 capsule Referrals: BRIAN ARZATE DPM [ACTIVE STAFF] - Follow up as needed
[2017-07-27 20:03] VITALS: BP 127/89
== END 2017-07-27 15:05 | disposition home or self-care (01) ==
LOC: ER 13:39
DX: L03.011 Cellulitis of right finger (principal); M79.644 Pain in right finger(s); L60.8 Other nail disorders; Z79.3 Long term (current) use of hormonal contraceptives
CPT/HCPCS: 99283

== ENCOUNTER 2017-08-13 09:04 | Day surgery (SDC) | payer MEDICAID ==
[2017-08-04 12:56] LABS: HEMATOCRIT 40.4 % (36.0-47.0); HEMOGLOBIN 13.4 g/dL (12.0-15.5); HGB HCT DIFFERENCE -0.2; MEAN CORPUSCULAR HEMOGLOBIN 27.7 pg (27.0-33.4); MEAN CORPUSCULAR HGB CONC 33.1 g/dL (32.0-36.0); MEAN CORPUSCULAR VOLUME 84 fl (80-97); RED BLOOD COUNT 4.83 10^6/uL (3.72-5.28); WHITE BLOOD COUNT 8.2 10^3/uL (4.0-10.5)
--- NOTE | 2017-08-04 13:08 | EKG REPORT ---
SEVERITY:- NORMAL ECG - SINUS RHYTHM EARLY TRANSITION. : Confirmed by: Galdino Gleason MD 04-Aug-2017 13:07:51
[~2017-08-13 09:04] MED LIST changes: +FENTANYL CITRATE INJ/PF 100 MCG/2 ML AMPUL ONE; +LACTATED RINGERS 1000 ML IV PRN; +MIDAZOLAM 2 MG/2 ML INJ ONE; +PROPOFOL INJ 200 MG/20 ML VIAL IV ONE; -RINGERS SOLUTION,LACTATED 1,000 ML IV PRN
[2017-08-13] MEDS ORDERED: BUPIVACAINE HCL 0.25 % INJ/PF (2.5 MG/1 ML) 30 ML VIAL ONE (09:53)
[2017-08-13] MEDS ORDERED: KETAMINE HCL INJ 500 MG/10 ML VIAL ONE (09:57)
[2017-08-13] MEDS ORDERED: ONDANSETRON HCL INJ/PF 4 MG/2 ML SDV IV PRN (10:29)
[2017-08-13] MEDS ORDERED: PROMETHAZINE HCL INJ 25 MG/1 ML VIAL IV PRN ×2 (10:29)
[2017-08-13] MEDS ORDERED: FENTANYL CITRATE INJ/PF 100 MCG/2 ML AMPUL IV PRN ×3 (10:29)
[2017-08-13] MEDS ORDERED: MEPERIDINE HCL/PF INJ 25 MG/1 ML DISP.SYRIN IV PRN (10:29)
[2017-08-13] MEDS ORDERED: MORPHINE SULFATE 10 MG/ML INJ IV PRN (10:29)
[2017-08-13] MEDS ORDERED: DIPHENHYDRAMINE HCL 50 MG/ML VIAL IV PRN (10:29)
[2017-08-13] MEDS ORDERED: OXYCODONE-ACETAMINOPHEN 5-325 MG TABLET PO PRN ×2 (10:29)
[2017-08-13] MEDS ORDERED: KETOROLAC TROMETHAMINE INJ/PF 30 MG/1 ML SDV ONE (11:08)
--- NOTE | 2017-08-13 11:23 | OPERATIVE REPORT E ---
Operative Report NAME: ODALYS IVY : 1985 AGE: 31Y DATE OF SURGERY: 08/13/2017 ROOM: PREOPERATIVE DIAGNOSIS: Desire for sterilization. POSTOPERATIVE DIAGNOSIS: Desire for sterilization. PROCEDURE: Tubal occlusion using Essure. SURGEON: Alan MAURER M.D. ANESTHESIA: General. ESTIMATED BLOOD LOSS: Negligible. TISSUE REMOVED: None. PROCEDURE: The patient was placed in a dorsal lithotomy position, prepped and draped in the usual sterile fashion. A speculum was placed, cervix visualized and grasped with a single-tooth tenaculum, and the os was sufficiently opened enough to admit the hysteroscope. The hysteroscope was placed and the left and right ostia were identified. The Essure device was placed in the left fallopian tube and fired, and there were 12 coils noted. On the right it was placed and the device was fired, and there were 8 coils visible. The hysteroscope was removed and the single-tooth tenaculum was removed. Hemostasis was noted. The speculum was removed and the procedure terminated. She was taken to the recovery room in good condition. DICTATING PHYSICIAN: Alan MAURER M.D. [id number] PHY#: [id number] ID: [id number] JOB#: [id number] ACCT: [id number] cc:Alan MAURER M.D. >
[2017-08-13] MEDS ORDERED: ONDANSETRON HCL INJ/PF 4 MG/2 ML SDV ONE (11:27)
[2017-08-13 13:37] VITALS: BP 139/97
[2017-08-13] MEDS ORDERED: IBUPROFEN 800 MG TABLET PO SCH (14:00)
== END 2017-08-13 12:35 | disposition home or self-care (01) ==
LOC: OROUT 09:04
PROVIDERS: ATTEND Obstetrics & Gynecology Gynecology
PROC: 0UL78DZ Occlusion of Bilateral Fallopian Tubes with Intraluminal Device, Via Natural or Artificial Opening Endoscopic (ICD-10-PCS; principal; 2017-08-13 11:00)
DX: Z30.2 Encounter for sterilization (principal)
CPT/HCPCS: 93005; 36415; 85027; 81025; 93010; 58565; J2250; J3010; J3490; J1885; J2405; J2704; 952

== ENCOUNTER 2017-08-14 08:56 | Emergency (ER) | payer MEDICAID ==
[2017-08-14 09:03] VITALS: BP 137/78
[2017-08-14] MEDS ORDERED: GLYCERIN/WITCH HAZEL LEAF 1 EACH MED..PAD TP ONE (09:41)
[2017-08-14] MEDS ORDERED: HYDROCORTISONE ACETATE 25 MG SUPP.RECT PR ONE (09:41)
[2017-08-14] MEDS ORDERED: MAGNESIUM CITRATE 296 ML BOTTLE PO ONE (09:42)
--- NOTE | 2017-08-14 09:47 | ER Document Report ---
ED GI Bleed / Rectal Pain - General Chief Complaint: Hemorrhoids Stated Complaint: SKIN IRRITATION Time Seen by Provider: 08/14/17 09:11 Mode of Arrival: Ambulatory Information source: Patient Notes: 31-year-old female presents to ED for complaint of no stool since Thursday and a hemorrhoid since last week. She states the hemorrhoid has not gotten any smaller but she has not had a bowel movement all week. TRAVEL OUTSIDE OF THE [place] IN LAST 30 DAYS: No - HPI Patient complains to provider of: Hemorrhoids, Rectal pain Onset: Last week Timing/Duration: Worse Quality of pain: Pressure, Sharp Severity of symptoms: Moderate Pain Level: 4 Exacerbated by: Sitting Relieved by: Standing Similar symptoms previously: No Recently seen / treated by doctor: No - Related Data Allergies/Adverse Reactions: NSAIDS (Non-Steroidal Anti-Inflamma Allergy (Severe, Verified 08/14/17 09:03) Edema Home Medications: Current Home Medications Norethindrone-E.estradiol-Iron [Junel Fe 1.5 mg-30 Mcg Tablet] 1 tab PO DAILY [History] Past Medical History - General Information source: Patient - Social History Smoking Status: Former Smoker Cigarette use (# per day): No Chew tobacco use (# tins/day): No Smoking Education Provided: No Frequency of alcohol use: None Drug Abuse: None Occupation: [employer] Lives with: Spouse/Significant other Family History: Arthritis, CAD, CVA, DM, Hyperlipidemia, Hypertension, Malignancy, Thyroid Disfunction Patient has suicidal ideation: No Patient has homicidal ideation: No - Past Medical History Cardiac Medical History: Reports: None Pulmonary Medical History: Reports: Hx Bronchitis - 2012 EENT Medical History: Reports: None Neurological Medical History: Reports: None Endocrine Medical History: Reports: None Renal/ Medical History: Reports: None. Denies: Hx Peritoneal Dialysis Malignancy Medical History: Reports: None GI Medical History: Reports: None Musculoskeltal Medical History: Reports None Skin Medical History: Reports None Psychiatric Medical History: Reports: None Traumatic Medical History: Reports: None Infectious Medical History: Reports: None Past Surgical History: Reports: Hx Cholecystectomy, Hx Tubal Ligation - Immunizations Hx Diphtheria, Pertussis, Tetanus Vaccination: No - unknown Review of Systems - Review of Systems Constitutional: No symptoms reported EENT: No symptoms reported Cardiovascular: No symptoms reported Respiratory: No symptoms reported Gastrointestinal: Constipation - No bowel movement since Thursday straining at the stool only passing gas, Other - Hemorrhoid and rectal pain Genitourinary: No symptoms reported Female Genitourinary: No symptoms reported Musculoskeletal: No symptoms reported Skin: No symptoms reported Hematologic/Lymphatic: No symptoms reported Neurological/Psychological: No symptoms reported -: Yes All other systems reviewed and negative Physical Exam - Vital signs Vitals: Temp Pulse Resp BP Pulse Ox 98.3 F 62 20 137/78 H 99 08/14/17 09:00 08/14/17 09:00 08/14/17 09:00 08/14/17 09:00 08/14/17 09:00 Interpretation: Normal - General General appearance: Appears well, Alert - HEENT Head: Normocephalic, Atraumatic Eyes: Normal Pupils: PERRL - Respiratory Respiratory status: No respiratory distress Chest status: Nontender Breath sounds: Normal Chest palpation: Normal - Cardiovascular Rhythm: Regular Heart sounds: Normal auscultation Murmur: No - Abdominal Inspection: Normal Distension: No distension Bowel sounds: Normal Tenderness: Nontender Organomegaly: No organomegaly - Rectal Tenderness: Yes Hemorrhoids: External - Back Back: Normal, Nontender - Extremities General upper extremity: Normal inspection, Nontender, Normal color, Normal ROM , Normal temperature General lower extremity: Normal inspection, Nontender, Normal color, Normal ROM , Normal temperature, Normal weight bearing. No: Erin's sign - Neurological Neuro grossly intact: Yes Cognition: Normal Orientation: AAOx4 Asl Coma Scale Eye Opening: Spontaneous Sal Coma Scale Verbal: Oriented [place] Coma Scale Motor: Obeys Commands Sal Coma Scale Total: 15 Speech: Normal Motor strength normal: LUE, RUE, LLE, RLE Sensory: Normal - Psychological Associated symptoms: Normal affect, Normal mood - Skin Skin Temperature: Warm Skin Moisture: Dry Skin Color: Normal Course - Re-evaluation Re-evalutation: 08/14/17 09:51 Patient will be treated with suppository for her hemorrhoid and be given magnesium Site-Rite for her constipation she was also instructed to use MiraLAX twice a day for the next week. Patient also to use Tucks pads and which Azo for her hemorrhoids. Patient given dietary instructions for her constipation. - Vital Signs Vital signs: Temp Pulse Resp BP Pulse Ox 98.3 F 62 20 137/78 H 99 08/14/17 09:00 08/14/17 09:00 08/14/17 09:00 08/14/17 09:00 08/14/17 09:00 Discharge - Discharge Clinical Impression: External hemorrhoid Condition: Stable Disposition: HOME, SELF-CARE Instructions: Family Physicians / Practices Additional Instructions: ABDOMINAL PAIN: There are many causes of abdominal pain. Pain can mean a serious problem requiring surgery (such as appendicitis). It can also be an innocent problem that goes away on its own (such as a viral infection). Often, time must pass to determine the cause of pain. The physician does not feel that hospitalization is necessary, at present. Things may change within the next 24 hours. Call the doctor or come back for re- examination if any problems occur, such as: (1) Pain that becomes more severe, steady, or becomes concentrated in one specific area. Also, pain that is more severe with movement or coughing. (2) Vomiting that persists or becomes more frequent. (3) Blood in the vomitus, urine, or bowel movements. Blood in the stool may have a tarry or black appearance. (4) Shaking chills or fever greater than 100 degrees F. (5) The abdomen becomes more distended or swollen. (6) Bowel movements cease. (7) Failure to improve as expected. Hemorrhoids You have hemorrhoids. These are formed by enlargement of veins around the anus. The cause is increased pressure in the veins, from or straining at bowel movements. Hemorrhoids often cause itching and bleeding with bowel movements. When a hemorrhoid becomes clotted, severe pain and swelling result. Soothing creams and suppositories are often prescribed. Warm sitz-baths may also decrease pain, swelling, and itching. Eat a high-fiber diet. Stool softeners such as Metamucil will help. Keep the area very clean. Medicated cleansing pads (such as Tucks) are useful after bowel movements. A hose-mounted shower unit (like a shower massager at low water pressure) can be used to clean around tender hemorrhoid tags. You should call the doctor or return if you develop fever, increasing pain , or an enlarging mass around the anus, or if you simply fail to improve with treatment. CONSTIPATION: Constipation is a common problem. It is especially likely as you get older. Constipation is a common cause of abdominal pain, but sometimes causes no symptoms at all. Causes of constipation include certain medications, dehydration, diets, inactivity, and low-fiber intake. Rarely, it can be a symptom of underlying disease. The physician has evaluated you for this. Avoid constipation by eating a diet high in fiber, fruits, and vegetables. Drink plenty of liquids. Get regular exercise. If possible, avoid constipating medicines like narcotic pain medication. Some vitamin tablets can cause constipation. Stool softeners may be needed for difficult cases. An excellent stool softener is Konsyl which is available at [employer], and [employer]. Just add a teaspoon to a glass of pineapple or orange juice daily or twice a day if needed. Laxatives are useful for occasional constipation. You should use them only when necessary. Too-frequent use can make your bowels dependent on them. Some over the counter laxatives available without prescription are: Milk of Magnesia, 1-2 tablespoons twice a day Dulcolax, 5 mg pill or 10 mg suppository. Citrate of Magnesia, 4-5 ounces a day for a day or two For acute constipation, Fleet's Enemas and Dulcolax suppositories are helpful. Chronic, fpc use of laxatives or enemas is not a good idea. Your bowel may become dependant on them. You do not need to have a bowel movement every day. Many people do fine with a bowel movement every three or four days. You should call your doctor or return for re-evaluation if you pass blood in the stool, or if you develop fever or increasing abdominal pain. Use MiraLAX 1 capful and a 8 ounce glass of juice or water or tea or coffee every morning and every night for at least the next 2 weeks. After that I recommend you using it at least once a day for a month. Any time you find yourself not having a bowel movement for 24 hours use MiraLAX again for several days until you get back regulated. LAXATIVE: A laxative agent has been prescribed for your condition. This should result in passage of stool within 12 hours. Some mild intestinal cramping is common as the hard stool begins to move. You may have loose or runny stools for a short time. Contact your doctor if there is severe cramping, vomiting, or passage of blood. Return for further care if this medicine fails to improve your condition. FOLLOW-UP CARE: If you have been referred to a physician for follow-up care, call the physician s office for an appointment as you were instructed or within the next two days. If you experience worsening or a significant change in your symptoms, notify the physician immediately or return to the Emergency Department at any time for re-evaluation. Prescriptions: Hydrocortisone Acetate [Anusol-Hc] 25 mg RC Q6 PRN #10 supp.rect PRN Reason: Forms: Elevated Blood Pressure, Return to Work
== END 2017-08-14 10:26 | disposition home or self-care (01) ==
LOC: ER 08:56
DX: K64.4 Residual hemorrhoidal skin tags (principal); Z79.899 Other long term (current) drug therapy; Z87.891 Personal history of nicotine dependence
CPT/HCPCS: 99283; J3490 ×3

== ENCOUNTER → 2017-11-12 | Outpatient (CLI) | payer MEDICAID ==
--- NOTE | 2017-11-12 16:21 | RADIOLOGY REPORT (SQ) ---
EXAM DESCRIPTION: HYSTEROSALPINGOGRAM COMPLETED DATE/TIME: 11/12/2017 3:58 pm REASON FOR STUDY: ESSURE PLACEMENT COMPARISON: None. PROCEDURE: PRE-PROCEDURE: Procedure was explained to the patient. She was told to expect cramping d uring the procedure and possible spotting post procedure. Procedure: Under direct visual inspection, the cervix was cannulated with the hysterosalpingogram dev ice and contrast injected gradually under low pressure. TECHNIQUE: Temporal fluoroscopic images acquired during the procedure stored to PACS. FLUOROSCOPY TIME: 0.2 minutes 5 images saved to PACS. LIMITATIONS: None. FINDINGS: UTERUS: No identified anomalies. No synechia. RIGHT ADNEXA: The Essure insert is in satisfactory position with the proximal end at or near the corn ua. There is no passage of contrast into or through the fallopian tube. LEFT ADNEXA: The Essure insert is in satisfactory position with the proximal end at or near the cornu a. There is no passage of contrast into or through the fallopian tube. POST PROCEDURE: The patient tolerated the procedure with no adverse side effects. IMPRESSION: THE ESSURE INSERTS ARE IN SATISFACTORY POSITION WITH SATISFACTORY OCCLUSION. COMMENT: Quality ID [id number]: Final reports for procedures using fluoroscopy that document radiation exp osure indices, or exposure time and number of fluorographic images (if radiation exposure indices are not available) TECHNICAL DOCUMENTATION: JOB ID: [id number] [employer]- All Rights Reserved
== END ==
LOC: RAD 15:00
PROVIDERS: ATTEND Obstetrics & Gynecology Gynecology
DX: Z30.2 Encounter for sterilization (principal)
CPT/HCPCS: 74740

== ENCOUNTER 2018-02-02 18:37 | Emergency (ER) | payer MEDICAID ==
[2018-02-02] MEDS ORDERED: ONDANSETRON HCL INJ/PF 4 MG/2 ML SDV IV ONE (19:26)
--- NOTE | 2018-02-02 19:27 | ER Document Report ---
ED Medical Screen (RME) - General Chief Complaint: Nausea/Vomiting Stated Complaint: DIZZY, CHEST PAIN, DIFFICULT BREATHING Time Seen by Provider: 02/02/18 19:26 TRAVEL OUTSIDE OF THE [place] IN LAST 30 DAYS: No - HPI Notes: 02/02/18 19:27 Nausea vomiting diarrhea dizziness - Related Data Allergies/Adverse Reactions: NSAIDS (Non-Steroidal Anti-Inflamma Allergy (Severe, Verified 02/02/18 19:26) Edema Past Medical History - Social History Chew tobacco use (# tins/day): No Frequency of alcohol use: None Drug Abuse: None - Past Medical History Cardiac Medical History: Denies: Hx Coronary Artery Disease, Hx Heart Attack, Hx Hypertension Pulmonary Medical History: Reports: Hx Bronchitis - 2011 Denies: Hx Asthma, Hx COPD, Hx Pneumonia Neurological Medical History: Denies: Hx Cerebrovascular Accident, Hx Seizures Endocrine Medical History: Denies: Hx Diabetes Mellitus Type 1, Hx Diabetes Mellitus Type 2 Renal/ Medical History: Denies: Hx Peritoneal Dialysis Musculoskeltal Medical History: Denies Hx Arthritis Skin Medical History: Denies Hx Cellulitis, Denies Hx MRSA Traumatic Medical History: Denies: Hx Fractures Past Surgical History: Reports: Hx Cholecystectomy, Hx Tubal Ligation - Immunizations Hx Diphtheria, Pertussis, Tetanus Vaccination: No - unknown History of Influenza Vaccine for 06/2017 - 11/2017 Season: No Review of Systems - Review of Systems Constitutional: Other - Nausea vomiting diarrhea dizziness Physical Exam - Vital signs Vitals: Temp Pulse Resp BP Pulse Ox 99.3 F 94 20 138/93 H 100 02/02/18 18:42 02/02/18 18:42 02/02/18 18:42 02/02/18 18:42 02/02/18 18:42 - Respiratory Respiratory status: No respiratory distress Chest status: Nontender Breath sounds: Normal Chest palpation: Normal Course - Vital Signs Vital signs: Temp Pulse Resp BP Pulse Ox 99.3 F 94 20 138/93 H 100 02/02/18 18:42 02/02/18 18:42 02/02/18 18:42 02/02/18 18:42 02/02/18 18:42
[2018-02-02] MEDS: NORMAL SALINE 1000 ML 1,000 ML IV PRN ×2 (20:05→20:07)
[2018-02-02 20:14] LABS: ABSOLUTE LYMPHOCYTES (AUTO) 0.9 10^3/uL (0.5-4.7); ABSOLUTE MONOCYTES (AUTO) 0.5 10^3/uL (0.1-1.4); BASOPHILS % (AUTO) 0.1 % (0-2); EOSINOPHILS % (AUTO) 0.1 % (0-6); HEMATOCRIT 44.5 % (36.0-47.0); HEMOGLOBIN 14.9 g/dL (12.0-15.5); LYMPHOCYTES % (AUTO) 5.3 % (13-45); MEAN CORPUSCULAR HEMOGLOBIN 29.4 pg (27.0-33.4); MEAN CORPUSCULAR HGB CONC 33.6 g/dL (32.0-36.0); MEAN CORPUSCULAR VOLUME 88 fl (80-97); PLATELET COUNT 441 10^3/uL (150-450); RED BLOOD COUNT 5.08 10^6/uL (3.72-5.28); RED CELL DISTRIBUTION WIDTH 13.6 % (11.5-14.0); SEGMENTED NEUTROPHILS % (AUTO) 91.5 % (42-78); TOTAL CELLS COUNTED % (AUTO) 100 %; WHITE BLOOD COUNT 16.4 10^3/uL (4.0-10.5)
[2018-02-02 20:24] LABS: ALANINE AMINOTRANSFERASE 22 U/L (9-52); ALKALINE PHOSPHATASE 107 U/L (38-126); ANION GAP 16 (5-19); ASPARTATE AMINO TRANSFERASE 21 U/L (14-36); BILIRUBIN,DIRECT 0.3 mg/dL (0.0-0.4); BILIRUBIN,TOTAL 0.8 mg/dL (0.2-1.3); BLOOD UREA NITROGEN 11 mg/dL (7-20); CALCIUM 10.2 mg/dL (8.4-10.2); CARBON DIOXIDE 21 mmol/L (22-30); CHLORIDE 106 mmol/L (98-107); GLUCOSE 94 mg/dL (75-110); POTASSIUM 4.3 mmol/L (3.6-5.0); SODIUM 142.7 mmol/L (137-145); TOTAL PROTEIN 8.6 g/dL (6.3-8.2)
--- NOTE | 2018-02-02 20:40 | RADIOLOGY REPORT (SQ) ---
EXAM DESCRIPTION: CHEST 2 VIEWS COMPLETED DATE/TIME: 02/02/2018 8:29 pm REASON FOR STUDY: sob COMPARISON: 07/22/2013 EXAM PARAMETERS: NUMBER OF VIEWS: two views TECHNIQUE: Digital Frontal and Lateral radiographic views of the chest acquired. RADIATION DOSE: NA LIMITATIONS: none FINDINGS: LUNGS AND PLEURA: No opacities, masses or pneumothorax. No pleural effusion. MEDIASTINUM AND HILAR STRUCTURES: No masses or contour abnormalities. HEART AND VASCULAR STRUCTURES: Heart normal size. No evidence for failure. BONES: No acute findings. HARDWARE: None in the chest. OTHER: No other significant finding. IMPRESSION: NO ACUTE RADIOGRAPHIC FINDING IN THE CHEST. TECHNICAL DOCUMENTATION: JOB ID: [id number] [employer]- All Rights Reserved Reading location - IP/workstation name: [email or web address]
[2018-02-02] MEDS ORDERED: FAMOTIDINE 20 MG TABLET PO ONE (22:06)
[2018-02-02] MEDS ORDERED: SUCRALFATE 1 GM TABLET PO ONE (22:06)
--- NOTE | 2018-02-02 22:31 | ER Document Report ---
ED GI/ - General Chief Complaint: Nausea/Vomiting Stated Complaint: DIZZY, CHEST PAIN, DIFFICULT BREATHING Time Seen by Provider: 02/02/18 19:26 Mode of Arrival: Ambulatory Information source: Patient Notes: Patient is a 32-year-old female who presents with chief complaint of dizziness, chest pain, shortness of breath, vomiting and diarrhea. Patient states that her symptoms first started at about 6:00 this morning when she had dizziness and syncope at work. Patient states that she did not hit her head as her coworkers caught her. Patient reports that she went home after her syncopal episode in continue to have at least 15 episodes of vomiting and diarrhea throughout the day. Patient denies any past medical history. Past surgical history significant for cholecystectomy. Patient denies use of any EtOH. TRAVEL OUTSIDE OF THE [place] IN LAST 30 DAYS: No - Related Data Allergies/Adverse Reactions: NSAIDS (Non-Steroidal Anti-Inflamma Allergy (Severe, Verified 02/02/18 19:26) Edema Past Medical History - General Information source: Patient - Social History Smoking Status: Former Smoker Chew tobacco use (# tins/day): No Frequency of alcohol use: None Drug Abuse: None Family History: Arthritis, CAD, CVA, DM, Hyperlipidemia, Hypertension, Malignancy, Thyroid Disfunction Patient has suicidal ideation: No Patient has homicidal ideation: No - Past Medical History Cardiac Medical History: Denies: Hx Coronary Artery Disease, Hx Heart Attack, Hx Hypertension Pulmonary Medical History: Reports: Hx Bronchitis - 2011 Denies: Hx Asthma, Hx COPD, Hx Pneumonia Neurological Medical History: Denies: Hx Cerebrovascular Accident, Hx Seizures Endocrine Medical History: Denies: Hx Diabetes Mellitus Type 1, Hx Diabetes Mellitus Type 2 Renal/ Medical History: Denies: Hx Peritoneal Dialysis Musculoskeltal Medical History: Denies Hx Arthritis Skin Medical History: Denies Hx Cellulitis, Denies Hx MRSA Traumatic Medical History: Denies: Hx Fractures Past Surgical History: Reports: Hx Cholecystectomy, Hx Tubal Ligation - Immunizations Hx Diphtheria, Pertussis, Tetanus Vaccination: No - unknown Review of Systems - Review of Systems Constitutional: See HPI EENT: No symptoms reported Cardiovascular: See HPI Respiratory: No symptoms reported Gastrointestinal: See HPI Genitourinary: No symptoms reported Female Genitourinary: No symptoms reported Musculoskeletal: No symptoms reported Skin: No symptoms reported Hematologic/Lymphatic: No symptoms reported Neurological/Psychological: No symptoms reported Physical Exam - Vital signs Vitals: Temp Pulse Resp BP Pulse Ox 99.3 F 94 20 138/93 H 100 02/02/18 18:42 02/02/18 18:42 02/02/18 18:42 02/02/18 18:42 02/02/18 18:42 - Notes Notes: PHYSICAL EXAMINATION: GENERAL: Well-appearing, well-nourished and in no acute distress. HEAD: Atraumatic, normocephalic. EYES: Pupils equal round and reactive to light, extraocular movements intact, conjunctiva are normal. ENT: Nares patent, oropharynx clear without exudates. Moist mucous membranes. NECK: Normal range of motion, supple without lymphadenopathy LUNGS: Breath sounds clear to auscultation bilaterally and equal. No wheezes rales or rhonchi. HEART: Regular rate and rhythm without murmurs ABDOMEN: Soft, nondistended abdomen with mild tenderness to the epigastric area. No guarding, no rebound. No masses appreciated. Female : deferred Musculoskeletal: Normal range of motion, no pitting or edema. No cyanosis. NEUROLOGICAL: Cranial nerves grossly intact. Normal speech, normal gait. Normal sensory, motor exams PSYCH: Normal mood, normal affect. SKIN: Warm, Dry, normal turgor, no rashes or lesions noted. Course - Re-evaluation Re-evalutation: Patient's EKG shows a sinus rhythm, no ectopy, no ST elevations or depressions, normal axis. Patient's blood work is unremarkable other than leukocytosis most likely secondary to acute vomiting. Patient given antiemetics in the department which has subsided her nausea. Will check a lipase to rule out pancreatitis as patient does have upper abdomen/epigastric pain. Patient with significant per improvement of her symptoms after administration of IV fluids, antiemetics. Patient's lipase is negative. Patient likely is suffering from a gastroenteritis/virus. Patient will be given Pepcid and Carafate. Patient agrees with this plan and understands ED return precautions. - Vital Signs Vital signs: Temp Pulse Resp BP Pulse Ox 99.3 F 94 16 127/89 H 100 02/02/18 18:42 02/02/18 18:42 02/02/18 20:32 02/02/18 20:31 02/02/18 20:32 - Laboratory Result Diagrams: 02/02/18 19:58 02/02/18 19:58 Laboratory results interpreted by me: 02/02/18 02/02/18 19:58 19:58 WBC 16.4 H Seg Neutrophils % 91.5 H Lymphocytes % 5.3 L Absolute Neutrophils 15.0 H Carbon Dioxide 21 L Total Protein 8.6 H Discharge - Discharge Clinical Impression: Vomiting and diarrhea Condition: Stable Disposition: HOME, SELF-CARE Additional Instructions: Vomiting Vomiting can be part of many illnesses. Most cases of vomiting are due to gastroenteritis, usually a viral infection in the intestinal tract. There is no specific treatment. The disease will end by itself. For now, the main danger to your child is dehydration. During the first few hours of the illness, give clear liquids, such as Pedialyte. Try to give small quantities frequently, such as a teaspoon of liquid every minute or about an ounce of fluids every five to ten minutes. Medications may be prescribed by the physician for special cases. After an hour or two of fluids without vomiting, add rice cereal, toast, applesauce, or bananas and other more solid foods to the clear liquids. Call the physician or go to the hospital if vomiting increases or blood appears in the bowel movement or vomitus; if your child fails to improve, or if signs of dehydration occur (no wet diapers for eight to twelve hours, tongue and mouth become dry, not acting as alert as usual). Diarrhea Diarrhea means frequent, watery stools. There are many causes. Any problem that keeps the intestinal tract from absorbing water from the stool can lead to diarrhea. A sudden new diarrhea problem is usually caused by a virus, food sensitivity, toxic bacteria, or drugs. In this case, we expect the problem to go away soon. Testing is done only if you seem seriously ill from the diarrhea. If you have chronic diarrhea, or diarrhea that keeps coming back, we need to find out why. Chronic diarrhea can be due to inflammation of the bowels such as Crohn's disease or ulcerative colitis, food sensitivity such as intolerance to lactose or wheat protein, irritable bowel syndrome, and other problems. If your diarrhea is a significant problem but it's not clear why you have it, we' ll refer you to a specialist for further testing. During an episode of diarrhea, drink small amounts (two to six ounces) of clear liquids (soft drinks, sport drinks, herb teas, broth, etc). Take fluids frequently to prevent dehydration. It's usually not a problem to take mild anti- diarrhea medication such as Kaopectate or Pepto-Bismol. As the diarrhea eases, advance to small amounts of bland food (mashed potato, toast) for 24 hours. Call the physician if blood appears in your vomit or stool, if vomiting lasts longer than 24 hours, if the abdominal pain worsens or becomes localized to one area, if you develop high fever, or if you become lightheaded and weak. Your workup today shows that you likely have a gastroenteritis or stomach bug. No lab work was normal as well as your EKG. Please take medications as needed to help control your symptoms. Started after drinking clear fluids and advance as tolerated. Please return to the emergency department if you experience worsening abdominal pain, fever, if you pass out again or any other symptoms that are concerning to you. Prescriptions: Famotidine [Pepcid 20 mg Tablet] 20 mg PO DAILY #12 tablet Ondansetron [Zofran Odt 4 mg Tablet] 1 - 2 tab PO Q4H PRN #15 tab.rapdis PRN Reason: For Nausea/Vomiting Sucralfate [Carafate 1 gm Tablet] 1 gm PO QID #20 tablet Referrals: SIDDHARTHA MAYORGA DO [Primary Care Provider] - Follow up as needed
[2018-02-02] MEDS ORDERED: ONDANSETRON ODT 4 MG TAB (6 TAB/ER DISP) PO PRN (22:34)
[2018-02-02 22:45] VITALS: BP 105/48
--- NOTE | 2018-02-03 07:42 | EKG REPORT ---
SEVERITY:- NORMAL ECG - SINUS RHYTHM : Confirmed by: Galdino Gleason MD 03-Feb-2018 07:41:57
== END 2018-02-02 23:05 | disposition home or self-care (01) ==
LOC: ER 18:37
DX: R11.2 Nausea with vomiting, unspecified (principal); R19.7 Diarrhea, unspecified; R42 Dizziness and giddiness; R07.9 Chest pain, unspecified; R06.9 Unspecified abnormalities of breathing; Z87.891 Personal history of nicotine dependence; Z90.49 Acquired absence of other specified parts of digestive tract; Z98.51 Tubal ligation status
CPT/HCPCS: 93005; 99284; 96361; 96374; 36415; 83690; 84703; 85025; 80053; 71046; 93010; J3490 ×2; J2405; J7030

== ENCOUNTER 2018-07-22 06:53 | Observation (INO) | payer MEDICAID ==
[2018-07-21 10:40] LABS: HEMATOCRIT 40.8 % (36.0-47.0); HEMOGLOBIN 13.7 g/dL (12.0-15.5); MEAN CORPUSCULAR HEMOGLOBIN 29.4 pg (27.0-33.4); MEAN CORPUSCULAR HGB CONC 33.5 g/dL (32.0-36.0); MEAN CORPUSCULAR VOLUME 88 fl (80-97); PLATELET COUNT 419 10^3/uL (150-450); RED BLOOD COUNT 4.65 10^6/uL (3.72-5.28); RED CELL DISTRIBUTION WIDTH 13.3 % (11.5-14.0)
[2018-07-21 10:45] LABS: APPEARANCE,URINE SLIGHTLY-CLOUDY; BILIRUBIN,URINE NEGATIVE (NEGATIVE); COLOR,URINE YELLOW; GLUCOSE, URINE NEGATIVE (NEGATIVE); KETONES,URINE NEGATIVE (NEGATIVE); LEUKOCYTE ESTERASE,URINE NEGATIVE (NEGATIVE); NITRITE,URINE NEGATIVE (NEGATIVE); PROTEIN,URINE NEGATIVE (NEGATIVE); URINE SPECIFIC GRAVITY 1.012; UROBILINOGEN,URINE NEGATIVE mg/dL (<2.0)
[2018-07-21 11:34] LABS: ALANINE AMINOTRANSFERASE 14 U/L (9-52); ALBUMIN 4.6 g/dL (3.5-5.0); ALKALINE PHOSPHATASE 68 U/L (38-126); ANION GAP 9 (5-19); ASPARTATE AMINO TRANSFERASE 18 U/L (14-36); BILIRUBIN,DIRECT 0.2 mg/dL (0.0-0.4); BILIRUBIN,TOTAL 0.6 mg/dL (0.2-1.3); BLOOD UREA NITROGEN 10 mg/dL (7-20); CALCIUM 9.8 mg/dL (8.4-10.2); CARBON DIOXIDE 26 mmol/L (22-30); CHLORIDE 104 mmol/L (98-107); GLUCOSE 77 mg/dL (75-110); POTASSIUM 4.9 mmol/L (3.6-5.0); SODIUM 138.7 mmol/L (137-145); TOTAL PROTEIN 7.6 g/dL (6.3-8.2)
[~2018-07-22 06:53] MED LIST changes: +ACETAMINOPHEN 1,000 MG/100 ML RTUPB IV ONE; +CEFAZOLIN 1 GM/D5W RTU 1 GM/50 ML RTUPB IV PRN; -FENTANYL CITRATE INJ/PF 100 MCG/2 ML AMPUL ONE; +HYDROMORPHONE HCL INJ/PF 2 MG/ML AMPULE ONE; +LIDOCAINE 0.5% INJ-PF (5 MG/ML) 50 ML SDV SUBCUT PRN
[2018-07-22] MEDS ORDERED: CEFAZOLIN 1 GM/D5W RTU 1 GM/50 ML RTUPB IV ONE (07:01)
[2018-07-22] MEDS ORDERED: BUPIVACAINE HCL 0.5 % INJ/PF 30 ML SDV ONE (07:30)
[2018-07-22] MEDS ORDERED: ONDANSETRON HCL INJ/PF 4 MG/2 ML SDV ONE ×2 (09:05→10:59)
[2018-07-22] MEDS ORDERED: ROCURONIUM BROMIDE INJ 50 MG/5 ML VIAL IV ONE (09:05)
[2018-07-22] MEDS ORDERED: DEXAMETHASONE SOD PHOSPHATE INJ 4 MG/1 ML VIAL ONE (09:05)
[2018-07-22] MEDS ORDERED: MEPERIDINE HCL/PF INJ 25 MG/1 ML DISP.SYRIN IV PRN (09:42)
[2018-07-22] MEDS ORDERED: MORPHINE SULFATE 10 MG/ML INJ IV PRN (09:42)
[2018-07-22] MEDS ORDERED: FENTANYL CITRATE INJ/PF 100 MCG/2 ML AMPUL IV PRN ×3 (09:42)
[2018-07-22] MEDS ORDERED: DIPHENHYDRAMINE HCL 50 MG/ML VIAL IV PRN (09:42)
[2018-07-22] MEDS ORDERED: PROMETHAZINE HCL INJ 25 MG/1 ML VIAL IV PRN ×2 (09:42)
--- NOTE | 2018-07-22 10:59 | OPERATIVE REPORT E ---
Operative Report NAME: ODALYS IVY : 1985 AGE: 32Y DATE OF SURGERY: 07/22/2018 ROOM: PREOPERATIVE DIAGNOSIS: Menorrhagia and dysmenorrhea. POSTOPERATIVE DIAGNOSIS: Menorrhagia and dysmenorrhea with probable adenomyosis. OPERATION: LAVH and bilateral salpingectomy. SURGEON: Alan MAURER M.D. ANESTHESIA: General. ESTIMATED BLOOD LOSS: Less than 100 mL. TISSUE REMOVED: Uterus and bilateral tubes. PROCEDURE: The patient was placed in a dorsal lithotomy position, prepped and draped in a sterile fashion. A speculum was placed. The cervix was visualized and grasped with a Hulka tenaculum. Speculum was removed and attention turned to the abdomen where a midline subumbilical incision was made. The trocar was introduced with insufflation of the abdomen and introduction of the laparoscope. Uterus appeared to be normal size with a boggy appearance. Both ovaries appeared to be normal. Second puncture made lateral to the first on the left and a 5 trocar was introduced, the third suprapubically and a 5 trocar was introduced. Using harmonic scalpel the right fallopian tube was divided along the mesosalpinx and then the right utero-ovarian ligament was divided. This was continued down to the ascending branch of the uterine artery on the right. The procedure was repeated on the left and then the bladder flap was created with sharp dissection. Abdomen deflated and trocars left in place and instruments were removed. Attention was turned to the pelvis where the Hulka tenaculum was removed, speculum was placed, and the cervix grasped with a Gail thyroid clamp. Posterior cul-de-sac was entered with sharp dissection. Posterior parietal peritoneum was sutured to the posterior cuff with 2-0 Vicryl. Left uterosacral was clamped and divided. The procedure was repeated on the right. The cervix was sharply circumscribed and the anterior parietal peritoneum was entered with sharp dissection. Serial clamps on each side of the uterus, each pedicle being clamped, divided, and sutured with 2-0 Vicryl, continued to the level where the above incisions were encountered and the uterus surgically removed. Pedicles were inspected. There appeared to be some bleeding on the right that was controlled with a [id number] suture of 2-0 Vicryl. Hemostasis was then noted. The cuff was closed with interrupted 2-0 Vicryl. Attention turned back to the abdomen. The abdomen was reinflated. The laparoscope was reintroduced. Inspection of the pedicles and hemostasis was noted. The pelvis was irrigated with normal saline and again hemostasis was noted. The instruments were removed, the abdomen deflated, and trocar sleeves removed. The subumbilical incision was closed with 0 Vicryl for the fascia and 4-0 for the subcu. The left puncture was closed with 4-0 subcu and the suprapubic was closed using *------*. The patient's urine remained clear all throughout the procedure. She was taken to the recovery room in good condition. DICTATING PHYSICIAN: Alan MAURER M.D. [id number] PHY#: [id number] ID: [id number] JOB#: [id number] ACCT: [id number] cc:Alan MAURER M.D. >
[2018-07-22] MEDS ORDERED: FENTANYL CITRATE INJ/PF 100 MCG/2 ML AMPUL ONE (11:01)
[2018-07-22] MEDS ORDERED: PROMETHAZINE HCL INJ 25 MG/1 ML VIAL ONE (11:02)
[2018-07-22] MEDS ORDERED: ONDANSETRON HCL INJ/PF 4 MG/2 ML SDV IV ONE (12:15)
[2018-07-22] MEDS: OXYCODONE-ACETAMINOPHEN 5-325 MG TABLET PO PRN ×2 (14:43→20:16)
[2018-07-22] MEDS: ACETAMINOPHEN 325 MG TABLET PO SCH ×2 (17:58→23:57)
[2018-07-22] MEDS: ONDANSETRON 4 MG TAB.RAPDIS PO PRN (18:56)
[2018-07-23] MEDS: OXYCODONE-ACETAMINOPHEN 5-325 MG TABLET PO PRN ×2 (02:26→15:00)
[2018-07-23] MEDS: ONDANSETRON 4 MG TAB.RAPDIS PO PRN (02:26)
[2018-07-23] MEDS: ACETAMINOPHEN 325 MG TABLET PO SCH ×2 (06:23→15:01)
--- NOTE | 2018-07-23 10:20 | EKG REPORT ---
SEVERITY:- NORMAL ECG - SINUS RHYTHM : Confirmed by: Andi Davenport 23-Jul-2018 10:19:47
[2018-07-23 11:14] LABS: ABSOLUTE BASOPHILS # (AUTO) 0.1 10^3/uL (0.0-0.2); ABSOLUTE LYMPHOCYTES (AUTO) 2.1 10^3/uL (0.5-4.7); ABSOLUTE MONOCYTES (AUTO) 1.3 10^3/uL (0.1-1.4); BASOPHILS % (AUTO) 0.5 % (0-2); HEMATOCRIT 34.2 % (36.0-47.0); LYMPHOCYTES % (AUTO) 11.9 % (13-45); MEAN CORPUSCULAR HEMOGLOBIN 29.4 pg (27.0-33.4); MEAN CORPUSCULAR HGB CONC 33.5 g/dL (32.0-36.0); MEAN CORPUSCULAR VOLUME 88 fl (80-97); MONOCYTES % (AUTO) 7.4 % (3-13); PLATELET COUNT 462 10^3/uL (150-450); RED BLOOD COUNT 3.91 10^6/uL (3.72-5.28); RED CELL DISTRIBUTION WIDTH 13.4 % (11.5-14.0); SEGMENTED NEUTROPHILS % (AUTO) 80.2 % (42-78); TOTAL CELLS COUNTED % (AUTO) 100 %
[2018-07-23 11:25] LABS: WHITE BLOOD COUNT 17.4 10^3/uL (4.0-10.5)
[2018-07-23 11:26] LABS: HEMOGLOBIN 11.5 g/dL (12.0-15.5)
--- NOTE | 2018-07-23 11:39 | PDOC DISCHARGE SUMMARY ---
General - Admit/Disc Date/PCP Admission Date/Primary Care Provider: 07/22/18 18:00 SIDDHARTHA MAYORGA DO Discharge Date: 07/23/18 - Discharge Diagnosis (1) Dysmenorrhea Is this a current diagnosis for this admission?: Yes (2) Menorrhagia Is this a current diagnosis for this admission?: Yes - Additional Information Discharge Diet: As Tolerated Discharge Activity: Activity As Tolerated, Balance Activity w/Rest, No Lifting/ Push/Pulling, Pelvic Rest, Slowly Increase Activity, No tub bath, Walk Frequently Home Medications: No Home Medications 07/21/18 History of Present Illness History of Present Illness: ODALYS IVY is a 32 year old female Hospital Course Hospital Course: pt had LAVH and uneventful post op course. pt is tolerating a regular diet, afebrile, and ambulating well Physical Exam - Physical Exam Vital Signs: Temp Pulse Resp BP Pulse Ox 98.7 F 59 L 18 105/64 99 07/23/18 07:39 07/23/18 07:39 07/23/18 07:39 07/23/18 07:39 07/23/18 07:39 Intake & Output 07/22/18 07/23/18 07/24/18 06:59 06:59 06:59 Intake Total 1575 Output Total 1225 Balance 350 Weight 99.34 kg 99.34 kg General appearance: PRESENT: no acute distress Respiratory exam: PRESENT: clear to auscultation reed Result Laboratory Results: 07/23/18 10:49 07/21/18 09:44 07/23/18 10:49 WBC 17.4 H D RBC 3.91 Hgb 11.5 L D Hct 34.2 L MCV 88 MCH 29.4 MCHC 33.5 RDW 13.4 Plt Count 462 H Seg Neutrophils % 80.2 H Lymphocytes % 11.9 L Monocytes % 7.4 Eosinophils % 0.0 Basophils % 0.5 Absolute Neutrophils 14.0 H Absolute Lymphocytes 2.1 Absolute Monocytes 1.3 Absolute Eosinophils 0.0 Absolute Basophils 0.1 Plan Time Spent: Less than 30 Minutes - d/c f/u 1 week or prn
[2018-07-23 17:16] VITALS: BP 112/59
== END 2018-07-23 17:35 | disposition home or self-care (01) ==
LOC: OROUT 06:53 → 2N 13:12 → OROUT 18:00 → 2N 18:00
PROVIDERS: ADMIT Obstetrics & Gynecology Gynecology; ATTEND Obstetrics & Gynecology Gynecology
PROC: 0UT7FZZ Resection of Bilateral Fallopian Tubes, Via Natural or Artificial Opening With Percutaneous Endoscopic Assistance (ICD-10-PCS; 2018-07-22)
PROC: 0UT9FZZ Resection of Uterus, Via Natural or Artificial Opening With Percutaneous Endoscopic Assistance (ICD-10-PCS; principal; 2018-07-22 08:45)
DX: N94.6 Dysmenorrhea, unspecified (principal); N92.0 Excessive and frequent menstruation with regular cycle; N80.0 Endometriosis of uterus; N83.8 Other noninflammatory disorders of ovary, fallopian tube and broad ligament; N70.11 Chronic salpingitis; Z98.890 Other specified postprocedural states
CPT/HCPCS: 86900; 86901; 36415 ×2; 86850; 85025; 85027; 81025; 80053; 81001; 88307 ×2; 93005; 93010; 58552; J3490 ×4; J2250; J0690; J1100; S0119 ×2; J3010; J1170; J2550; J2405; J2704; J0131; 944

== ENCOUNTER 2018-11-05 12:36 | Emergency (ER) | payer SELFPAY ==
[2018-11-05 12:59] VITALS: BP 140/64
[2018-11-05] MEDS ORDERED: ACETAMINOPHEN 325 MG TABLET PO ONE (13:01)
--- NOTE | 2018-11-05 13:58 | EKG REPORT ---
SEVERITY:- BORDERLINE ECG - SINUS TACHYCARDIA PROBABLE LEFT ATRIAL ABNORMALITY BORDERLINE T ABNORMALITIES, DIFFUSE LEADS : Confirmed by: Andi Davenport 05-Nov-2018 13:57:16
[2018-11-05] MEDS ORDERED: ONDANSETRON HCL INJ/PF 4 MG/2 ML SDV IV ONE (15:02)
--- NOTE | 2018-11-05 15:02 | ER Document Report ---
ED Medical Screen (RME) - General Chief Complaint: Nausea/Vomiting/Diarrhea Stated Complaint: VOMITING,BACK PAIN,FEVER Time Seen by Provider: 11/05/18 14:56 Primary Care Provider: SIDDHARTHA MAYORGA DO [Primary Care Provider] - Follow up as needed Notes: 33-year-old female with history of migraine headaches presents to the emergency department for vomiting, chest pain, back pain, fever since yesterday. She states she has severe headache, sore throat, shortness of breath with a productive cough, it hurts when she coughs, inability to tolerate oral liquids, abdominal pain crampy in nature. TRAVEL OUTSIDE OF THE [place] IN LAST 30 DAYS: No - Related Data Allergies/Adverse Reactions: NSAIDS (Non-Steroidal Anti-Inflamma Allergy (Severe, Verified 11/05/18 12:40) Anaphylaxis Past Medical History - Social History Chew tobacco use (# tins/day): No Frequency of alcohol use: None Drug Abuse: None - Past Medical History Cardiac Medical History: Denies: Hx Coronary Artery Disease, Hx Heart Attack, Hx Hypertension Pulmonary Medical History: Reports: Hx Bronchitis - 2011 Denies: Hx Asthma, Hx COPD, Hx Pneumonia Neurological Medical History: Denies: Hx Cerebrovascular Accident, Hx Seizures Endocrine Medical History: Denies: Hx Diabetes Mellitus Type 1, Hx Diabetes Mellitus Type 2 Renal/ Medical History: Denies: Hx Peritoneal Dialysis Musculoskeltal Medical History: Denies Hx Arthritis Skin Medical History: Denies Hx Cellulitis, Denies Hx MRSA Traumatic Medical History: Denies: Hx Fractures Past Surgical History: Reports: Hx Cholecystectomy, Hx Tubal Ligation - Immunizations Hx Diphtheria, Pertussis, Tetanus Vaccination: Yes History of Influenza Vaccine for 06/2017 - 11/2017 Season: No Physical Exam - Vital signs Vitals: Temp Pulse Resp BP Pulse Ox 101.4 F H 110 H 22 H 140/64 H 100 11/05/18 12:56 11/05/18 12:56 11/05/18 12:56 11/05/18 12:56 11/05/18 12:56 - Respiratory Respiratory status: No respiratory distress Chest status: Nontender Breath sounds: Normal Chest palpation: Normal - Cardiovascular Rhythm: Regular Heart sounds: Normal auscultation, S1 appreciated, S2 appreciated Course - Vital Signs Vital signs: Temp Pulse Resp BP Pulse Ox 101.4 F H 110 H 22 H 140/64 H 100 11/05/18 12:56 11/05/18 12:56 11/05/18 12:56 11/05/18 12:56 11/05/18 12:56 Doctor's Discharge - Discharge Referrals: SIDDHARTHA MAYORGA DO [Primary Care Provider] - Follow up as needed
[2018-11-05] MEDS ORDERED: NORMAL SALINE 1000 ML 1,000 ML IV ONE (15:04)
[2018-11-05 16:09] LABS: HEMATOCRIT 39.5 % (36.0-47.0); HEMOGLOBIN 13.1 g/dL (12.0-15.5); MEAN CORPUSCULAR VOLUME 85 fl (80-97); PLATELET COUNT 393 10^3/uL (150-450); RED BLOOD COUNT 4.67 10^6/uL (3.72-5.28); RED CELL DISTRIBUTION WIDTH 14.3 % (11.5-14.0); WHITE BLOOD COUNT 11.5 10^3/uL (4.0-10.5)
[2018-11-05 16:29] LABS: A TYPE INFLUENZA AG NEGATIVE (NEGATIVE); ALANINE AMINOTRANSFERASE 14 U/L (9-52); ALBUMIN 4.7 g/dL (3.5-5.0); ALKALINE PHOSPHATASE 59 U/L (38-126); ANION GAP 13 (5-19); ASPARTATE AMINO TRANSFERASE 22 U/L (14-36); B INFLUENZA AG NEGATIVE (NEGATIVE); BILIRUBIN,DIRECT 0.3 mg/dL (0.0-0.4); BILIRUBIN,TOTAL 0.5 mg/dL (0.2-1.3); BLOOD UREA NITROGEN 7 mg/dL (7-20); CALCIUM 9.6 mg/dL (8.4-10.2); CARBON DIOXIDE 22 mmol/L (22-30); CHLORIDE 103 mmol/L (98-107); GLUCOSE 108 mg/dL (75-110); POTASSIUM 4.1 mmol/L (3.6-5.0); TOTAL PROTEIN 7.8 g/dL (6.3-8.2)
[2018-11-05 16:33] LABS: ABSOLUTE LYMPHOCYTES# (MANUAL) 0.5 10^3/uL (0.5-4.7); ABSOLUTE MONOCYTES # (MANUAL) 0.9 10^3/uL (0.1-1.4); ABSOLUTE NEUTROPHILS# (MANUAL) 10.1 10^3/uL (1.7-8.2); ANISOCYTOSIS SLIGHT; BASOPHILS % (MANUAL) 0 % (0-2); EOSINOPHILS % (MANUAL) 0 % (0-6); LYMPHOCYTES % (MANUAL) 4 % (13-45); MONOCYTES % (MANUAL) 8 % (3-13); PLATELET COMMENT ADEQUATE; SEGMENTED NEUTROPHILS % (MAN) 88 % (42-78); TOTAL CELLS COUNTED 100; TOXIC GRANULATION SLIGHT
[2018-11-05] MEDS ORDERED: ONDANSETRON ODT 4 MG TAB (6 TAB/ER DISP) PO PRN (18:39)
--- NOTE | 2018-11-05 18:39 | ER Document Report ---
ED General - General Chief Complaint: Nausea/Vomiting/Diarrhea Stated Complaint: VOMITING,BACK PAIN,FEVER Time Seen by Provider: 11/05/18 14:56 Primary Care Provider: SIDDHARTHA MAYORGA DO [Primary Care Provider] - Follow up tomorrow Notes: Patient is a 33-year-old female without chronic medical problems who presents with complaints of 48 hours of nausea, vomiting, headache, fever, cough and sore throat. States her youngest child is here with the same symptoms. Her older child was diagnosed as having positive influenza several days ago and she believes that it has spread throughout the house. She has been trying Tylenol at home with minimal improvement of her symptoms. Nothing worsens her symptoms. Denies any overt shortness of breath. No history of similar symptoms in the past. Has not seen her primary care physician regarding today's concerns. She states her main issue at this time is a throbbing, aching, constant, global headache. States this does feel similar to migraines that she has had in the past and has been ongoing for the past 2 days. Denies any neck pain or stiffness. TRAVEL OUTSIDE OF THE [place] IN LAST 30 DAYS: No - Related Data Allergies/Adverse Reactions: NSAIDS (Non-Steroidal Anti-Inflamma Allergy (Severe, Verified 11/05/18 12:40) Anaphylaxis Past Medical History - General Information source: Patient - Social History Smoking Status: Never Smoker Chew tobacco use (# tins/day): No Frequency of alcohol use: None Drug Abuse: None Lives with: Spouse/Significant other Family History: Arthritis, CAD, CVA, DM, Hyperlipidemia, Hypertension, Malignancy, Thyroid Disfunction Patient has suicidal ideation: No Patient has homicidal ideation: No - Past Medical History Cardiac Medical History: Denies: Hx Coronary Artery Disease, Hx Heart Attack, Hx Hypertension Pulmonary Medical History: Reports: Hx Bronchitis - 2012 Denies: Hx Asthma, Hx COPD, Hx Pneumonia Neurological Medical History: Denies: Hx Cerebrovascular Accident, Hx Seizures Endocrine Medical History: Denies: Hx Diabetes Mellitus Type 1, Hx Diabetes Mellitus Type 2 Renal/ Medical History: Denies: Hx Peritoneal Dialysis Musculoskeletal Medical History: Denies Hx Arthritis Skin Medical History: Denies Hx Cellulitis, Denies Hx MRSA Traumatic Medical History: Denies: Hx Fractures Past Surgical History: Reports: Hx Cholecystectomy, Hx Tubal Ligation - Immunizations Hx Diphtheria, Pertussis, Tetanus Vaccination: Yes Review of Systems - Review of Systems Notes: Constitutional: Positive for fever. HENT: Negative for sore throat. Eyes: Negative for visual changes. Cardiovascular: Negative for chest pain. Respiratory: Positive for cough Gastrointestinal: Negative for abdominal pain, positive for nausea and vomiting Genitourinary: Negative for dysuria. Musculoskeletal: Positive for chest wall pain with coughing. Skin: Negative for rash. Neurological: Positive for headaches 10 point ROS negative except as marked above and in HPI. Physical Exam - Vital signs Vitals: Temp Pulse Resp BP Pulse Ox 101.4 F H 110 H 22 H 140/64 H 100 11/05/18 12:56 11/05/18 12:56 11/05/18 12:56 11/05/18 12:56 11/05/18 12:56 Interpretation: Tachycardic, Tachypneic, Febrile Notes: PHYSICAL EXAMINATION: GENERAL: Appears moderately unwell but in no acute distress HEAD: Atraumatic, normocephalic. EYES: Pupils equal round and reactive to light, extraocular movements intact, sclera anicteric, conjunctiva are normal. ENT: nares patent, oropharynx clear without exudates. Moderately dry mucous membranes. NECK: Normal range of motion, supple without lymphadenopathy, no meningismus LUNGS: Breath sounds clear to auscultation bilaterally and equal. No wheezes rales or rhonchi. HEART: Regular tachycardia without murmurs ABDOMEN: Soft, nontender, normoactive bowel sounds. No guarding, no rebound. No masses appreciated. EXTREMITIES: Normal range of motion, no pitting or edema. No cyanosis. NEUROLOGICAL: Face symmetric. Tongue protrudes midline. Extraocular motions intact. Pupils are 2 mm and equally reactive. Normal speech, normal gait. 5 out of 5 strength in both the distal and proximal upper and lower extremities bilaterally. Sensation is grossly intact throughout. Finger to nose testing normal. Pronator drift normal. PSYCH: Normal mood, normal affect. SKIN: Warm, Dry, normal turgor, no rashes or lesions noted. Course - Re-evaluation Re-evalutation: 11/05/18 18:37 Patient presents with cough, vomiting, diarrhea, and fever at home consistent with a diagnosis of influenza. Although the mother's influenza testing is negative her child whom she is here with has a positive influenza A testing. Suspect that this is a false negative. Patient is overall well in appearance, in no acute distress. Lung sounds clear. Able to tolerate oral intake without difficulty here in the emergency department. After risks and benefits conversation with the patient regarding the use of Tamiflu, they have elected to use supportive care without Tamiflu based on concerns about lack of efficacy as well as the side effect profile. At this time will discharge with return precautions and follow-up recommendations. Verbal discharge instructions given a the bedside and opportunity for questions given. Medication warnings reviewed. Patient is in agreement with this plan and has verbalized understanding of return precautions and the need for primary care follow-up in the next 24-72 hours. - Vital Signs Vital signs: Temp Pulse Resp BP Pulse Ox 101.4 F H 110 H 22 H 140/64 H 100 11/05/18 12:56 11/05/18 12:56 11/05/18 12:56 11/05/18 12:56 11/05/18 12:56 - Laboratory Result Diagrams: 11/05/18 15:44 11/05/18 15:44 Laboratory results interpreted by me: 11/05/18 15:44 WBC 11.5 H RDW 14.3 H Seg Neuts % (Manual) 88 H Lymphocytes % (Manual) 4 L Abs Neuts (Manual) 10.1 H - EKG Interpretation by Me Additional EKG results interpreted by me: 11/05/18 18:54 Sinus tachycardia, rate 105. No ST elevations or depressions. QTC is 413. Discharge - Discharge Clinical Impression: Influenza Nausea and vomiting Qualifiers: Vomiting type: unspecified Vomiting Intractability: non-intractable Qualified Code(s): R11.2 - Nausea with vomiting, unspecified Condition: Stable Disposition: HOME, SELF-CARE Additional Instructions: You have influenza. Although your testing here is negative, your child has a positive flu a test. False negative tests are quite common in particular given the your child has a positive test, you almost certainly have flu as well. There is no treatment that is effective for this diagnosis other than supportive care at home. This includes drinking plenty of fluids, using Tylenol or ibuprofen as needed for fever and discomfort, and Zofran as needed for nausea and vomiting. Please follow closely with you primary care physician the next 1- 2 days regarding this diagnosis. Return to the emergency department immediately if you began to have persistent vomiting prevents you from being able to keep fluids down for more than 12 hours, you pass out, you began having difficulty breathing, you become confused, or you have any other symptoms that are worrisome to you. Referrals: SIDDHARTHA MAYORGA, [Primary Care Provider] - Follow up tomorrow
[2018-11-05] MEDS ORDERED: METOCLOPRAMIDE HCL INJ/PF 10 MG/2 ML SDV IV ONE (18:52)
== END 2018-11-05 19:46 | disposition home or self-care (01) ==
LOC: ER 12:36
DX: J11.1 Influenza due to unidentified influenza virus with other respiratory manifestations (principal); R11.2 Nausea with vomiting, unspecified; R05 Cough; R19.7 Diarrhea, unspecified; R07.89 Other chest pain; R51 Headache; R50.9 Fever, unspecified; R00.0 Tachycardia, unspecified; Z86.69 Personal history of other diseases of the nervous system and sense organs; Z88.8 Allergy status to other drugs, medicaments and biological substances
CPT/HCPCS: 93005; 99283; 96361; 96374; 96375; 36415; 85025; 80053; 87804; 93010; J2765; J2405; J7030